=== PATIENT | female | born 1950 | race Caucasian/White ===

== ENCOUNTER 2020-09-03 16:49 | Emergency (ER) | payer MEDICARE, SELFPAY ==
[2020-09-03 16:55] VITALS: BP 149/60; PULSE 75; RESP 16; TEMP 36.3; O2SAT 100; BMI 32.9
[2020-09-03 17:01] VITALS: BP 164/88; PULSE 88; O2SAT 99
--- NOTE | 2020-09-03 17:23 | ED.GENADULT ---
HPI - General Adult General Source: patient, EMS and RN notes reviewed Mode of arrival: ambulatory Limitations: no limitations History of Present Illness HPI narrative: 70-year-old female here today for evaluation. Patient was brought by EMS, history of anaphylaxis to bee stings. Patient reports that she was outside just coming into the house and closing her umbrella when she noticed that hornet was on her pinky finger of her right hand. Patient felt a sting. She was afraid that she will have anaphylactic reaction is she is to bees. She never was stung by hornet before. She called the EMS. Patient reports that her whole finger swelled up and got red and warm. Patient took her ring of before the swelling. Patient denies any SOB, scratchy throat, dysphagia. Related Data Allergies Allergy/AdvReac Type Severity Reaction Status Date / Time bee pollen [Bee Stings] Allergy Unknown ANAPHLACTIC Unverified 01/23/20 17:30 Sulfa (Sulfonamide Allergy Unknown HIVES Unverified 01/23/20 17:30 Antibiotics) From Keflex Allergy Unknown RASH Uncoded 01/23/20 17:30 Review of Systems Review of Systems: Constitutional : No Weight loss, No Fever, No Chills, No Night Sweats, No Fatigue, No Malaise ENT/Mouth : No Hearing loss, No Ear Pain, No Nasal Congestion, No Sinus Pain, No Hoarseness, No sore throat, No Rhinorrhea, No Swallowing Difficulty Eyes: No Eye Pain, No Swelling, No Redness, No Foreign Body, No Discharge, No Vision Changes Cardiovascular : No Chest Pain, No SOB, No Dyspnea on Exertion, No Orthopnea, No Edema, No Palpitations Respiratory : No Cough, No Sputum, No Wheezing, No Smoke Exposure, No Dyspnea Gastrointestinal : No Nausea, No Vomiting, No Diarrhea, No Constipation, No abdominal Pain, No Hematochezia, No Melena Genitourinary : no irregular bleeding, No Dysuria, No Urinary Frequency, No Hematuria, No Urinary Incontinence, No Urgency, No Flank Pain, No Urinary Flow Changes, No Hesitancy Musculoskeletal : No joint pain, No Myalgias, No Joint Swelling Skin : No Skin Lesions, Right hand pinky red and swollen Neuro : No Weakness, No Numbness, No Paresthesias, No Loss of Consciousness, No Dizziness, No Headache Psych : No Anxiety/Panic, No Depression, No SI/HI/AH/VH, No Social Issues, Heme/Lymph: No Bruising, No Bleeding,No Lymphadenopathy Endocrine : No Polyuria, No Polydipsia, No Temperature Intolerance Yes all other systems are reviewed and are negative [facility] Past Medical History Medical History (Updated 09/07/20 @ 12:42 by Ameena Kwok [facility]) High cholesterol Palpitations Surgical History (Updated 09/03/20 @ 16:58 by Josselin Ferrara) History of left hip replacement Total knee replacement status Social History Social History Advance Directives: No Advance Directives Information Provided: No Physical Exam Vital Signs: Vital Signs: Last Vital Signs Temp 97.4 F 09/03/20 16:55 Pulse 75 09/03/20 16:55 Resp 16 09/03/20 16:55 BP 149/60 H 09/03/20 16:55 Pulse Ox 100 09/03/20 16:55 Body Mass Index 32.9 Const: General: cooperative, healthy appearing and comfortable Nutritional Appearance: average body habitus Orientation/consciousness: patient oriented x3 Limitations: no limitations Resp: Effort & Inspection: normal respiratory effort Auscultation: clear to auscultation bilaterally Cardio: Rate: regular rate Rhythm: regular rhythm Heart sounds: S1 normal heart sound present and S2 normal heart sound present Neuro: General: patient oriented x3 Extrem: General: Yes normal to inspection, Yes full ROM and Yes capillary refill normal Psych: Appearance: grossly normal Mental Status: mental status grossly normal Speech and movement: Normal speech and movement present Affect: normal affect Attitude: cooperative Thought process: Normal thought process present Insight: Good insight present (Psych) Course Course Course Narrative: 70-year-old female stung by hornet. Patient has allergy to bee pollen and bee stings. She reports she had a anaphylactic shock before when she was stung bees. Patient's right hand pinky finger red, swollen and warm to touch with local allergic reaction. Denies any dysphagia, itchy throat or SOB. Will order Benadryl p.o. and monitor patient for couple hours. Reevaluation(s) Reevaluation #1: Redness is resolving. Patient is feeling well able to swallow p.o. fluids no SOB continues to feel well. Discharge Plan Discharge Clinical Impression: Allergic reaction Patient Disposition: Home, Self-Care Instructions: General Allergic Reaction (ED) Additional Instructions: You came to emergency department today for allergic reaction to wasp/hornet sting. You were given Benadryl 25 mg by mouth. Please make sure that you have EpiPen on hand. Please return to emergency department if you symptoms worsen or if you will experience any other concerning symptoms. Please follow-up with your primary care provider in 2-3 days for more prescription for EpiPen. Interventions: ED Discharge Assessment Last Done: 09/03/20 18:43 Discharge Date/Time: 09/03/20 18:44
[2020-09-03] MEDS: diphenhydrAMINE HCL 25 MG TABLET PO (17:36)
== END 2020-09-03 18:44 | disposition home or self-care (01) ==
PROVIDERS: Emergency Provider Internal Medicine; PCP Internal Medicine
DX: T63.441A Toxic effect of venom of bees, accidental (unintentional), initial encounter (principal); M79.89 Other specified soft tissue disorders; Y92.017 Garden or yard in single-family (private) house as the place of occurrence of the external cause; X58.XXXA Exposure to other specified factors, initial encounter; Z91.030 Bee allergy status
CPT/HCPCS: 99283; Q0163

== ENCOUNTER 2025-04-21 14:40 | Emergency (ER) | payer MEDICARE, SELFPAY ==
--- OUTSIDE RECORDS SUMMARY | 2024-02-05 08:15 | XMS_ITS | Encounter Summary ---
Author Organization [facility] [place] [address] Care Team Providers Care Accountant Controller Name Role Phone Jules Lloyd MD Primary Care Provider [phone] Encounter Details Date Type Department Care Team (Late st Contact Info) Description 02/05/2024 9:15 AM EDT Hospital Encounter TH HISTORIC ENCOUNTERS EASTERN CONVERSION ONLY Vivi Mcintyre MD [address] [place] [address] Social History Tobacco Use Types Packs/Day Years Used Date Smoking Tobacco: Every Day Cigarettes 0.5 55 Started: 05/08/1971 Smokeless Tobacco: Never Alcohol Use Standard Drinks/Week Comments Not Currently 0 (1 standard drink = 0.6 oz pur e alcohol) Housing Instability Answer Date Recorde d Are you worried that in the next 2 months you may not have stable housing? No 01/29/2025 Food Access & Nutrition Answer Date Rec orded Do you have access to a vari ety of food including fruits and vegetables? Yes 01/29/2025 Access to Healthcare Answer Date Record ed Within the last 3 months, ca puri many times did you visit the emergency department for your medical care? 0 01/29/2025 Health Literacy Answer Date Recorded How often do you need to hav e someone help you when you read instructions, pamphlets, or other written material from your doctor or pharmacy? Never 01/29/2025 Caregiver: How often do you need to have someone help you when you read instructions, pamphlets, or other written material from your doctor or pharmacy? Not on file 01/29/2025 Transportation Answer Date Recorded Has the lack of transportati on kept you from meetings, work, or from getting things needed for daily living? No Has the lack of transportati on kept you from medical appointments or from getting medications? No 01/29/2025 Social Isolation Answer Date Recorded How often do you feel lonely or isolated from th ose around you? Never 01/29/2025 Food Risk Answer Date Recorded Within the past 12 months we worried whether our food would run out before we got money to buy more. Never true 01/29/2025 Within the past 12 months th e food we bought just didn't last and we didn't have money to get more. Never true 01/29/2025 Dependent Care Answer Date Recorded Do you need help finding or paying for care for your loved ones. For example, child adolescent psychiatrist or elderly care for an older adult? No 01/29/2025 Education Answer Date Recorded Do you think completing more education or training, like finishing a GED, going to college, or learning a trade, would be helpful for you? N/A 01/29/2025 Employment and Income Answer Date Recor ded During the last four weeks, have you been actively looking for work? Patient declined 01/29/2025 Living Situation Answer Date Recorded What is your living situation? Unrecognized valu e 01/29/2025 Interpersonal Safety Answer Date Record ed Physical Abuse Unrecognized value 04/23/2024 Verbal Abuse Unrecognized value 04/23/2024 Comments No Sex and Gender Information Value Date Recorded Sex Assigned at Female 04/23/2024 7:04 AM EST Legal Sex Female 6:00 AM EST Gender Identity Female 04/23/2024 7:04 AM EST Sexual Orientation Straight 04/23/2024 7: 04 AM EST documented as of this encounter Functional Status * Calculated C-SSRS Risk Score (Lifetime/Recent) Answer Date of Assessment Author No Risk Indicated 04/23/2024 9:25 PM EST Anastasiya Dudley RN * [place] Suicide Severity Rating Scale (Screener/Recent Self-Report) Question Answer Date of Assessment Author 1. Wish to be (Past 1 Month) No 04/23/2024 9:25 PM Anastasiya Dillard, SHIV 2. Non-Specific Active Suicidal Thoughts (Past 1 Month) No 04/23/2024 9:25 PM Anastasiya Dillard RN 6. Suicidal Behavior (Lifetime) No 04/23/2024 9:25 PM Anastasiya Dillard, SHIV documented as of this encounter Plan of Treatment Upcoming Encounters Date Type Department Care Team (Late st Contact Info) Description 05/12/2025 9:15 AM EST Office Visit [facility] Hematology Oncology [address] [place] [phone] Vivi Mcintyre MD [address] [place] [phone] 05/12/2025 9:30 AM EST Appointment [facility] Infusion Center [address] [place] [phone] 07/23/2025 10:00 AM EDT Office Visit Breast Care [address] [phone] Jigar Smart MD [address] [place] [phone] 08/06/2025 11:15 AM EDT Office Visit Adult Medicine [address] [phone] Jules Lloyd MD [address] [place] [phone] documented as of this encounter Visit Diagnoses Not on filedocumented in this encounter Care Teams Accountant Controller Relationship Specialty Start Date End Date Jules Lloyd MD [address] [place] [address] PCP - General Internal Medicine 05/22/17 documented as of this encounter
--- OUTSIDE RECORDS SUMMARY | 2024-02-08 07:54 | XMS_ITS | Encounter Summary ---
Author Organization [facility] [place] [address] Care Team Providers Care Quarantine Inspector Name Role Phone Jules Lloyd MD Primary Care Provider [phone] Encounter Details Date Type Department Care Team (Late st Contact Info) Description 02/08/2024 8:54 AM EDT Hospital Encounter TH HISTORIC ENCOUNTERS EASTERN CONVERSION ONLY Social History Tobacco Use Types Packs/Day Years [...] Record ed Within the last 3 months, ho w many times did you visit the emergency [...] care for your loved ones. For example, early childhood associate teacher or elderly care for an older adult? [...] AM EST documented as of this encounter Last Filed Vital Signs Vital Sign Reading Time Taken Comments Blood Pressure - - Pulse - - Temperature - - Respiratory Rate - - Oxygen Saturation - - Inhaled Oxygen Concentration - - Weight 77.8 kg (171 lb 9.6 oz) 02/05/2024 10:08 AM EDT Height 162.6 cm (5' 4 ) 01/30/2024 9:26 AM EDT Body Mass Index 29.45 01/30/2024 9:26 AM EDT documented in this encounter Functional Status * Calculated C-SSRS Risk Score (Lifetime/Recent) Answer Date of Assessment Author No Risk Indicated 04/23/2024 9:25 PM Anastasiya Dillard RN * [place] Suicide Severity Rating Scale (Screener/Recent Self-Report) Question Answer Date of Assessment Author 1. Wish to be (Past 1 Month) No 04/23/2024 9:25 PM Anastasiya Dillard, SHIV 2. Non-Specific Active Suicidal Thoughts (Past 1 Month) No 04/23/2024 9:25 PM Anastasiya Dillard RN 6. Suicidal Behavior (Lifetime) No 04/23/2024 9:25 PM Anastasiya Dillard RN documented as of this encounter Progress Notes * Historical, Notes Results - 02/08/2024 9:00 AM EDT Arrived amb with daughter for hydration. Pt has thrush, it is improving, still slight yellow coating on tongue. She is taking diflucan, taste is off, appetite poor, eating small amounts at a time. Diarrhea improving, no BM today, stool was loose yesterday, not as watery. No nausea or vomiting, justupset stomach. Feels she would benefit from a banana bag today, halo sent to Dr. Mcintyre re orders for today. Spoke with Dr. Mcintyre on phone, verbal order for banana bag today from Dr. Mcintyre. Port accessed. 1220 Infusion complete, next step for her is surgery, pt scheduled for port flush after [facility] [place] in 8 weeks. Knows she can call in the meantime if she feels she needs hydration support. Left amb with daughter stable at D/C. documented in this encounter Plan of Treatment Upcoming Encounters Date Type Department Care Team (Late st Contact Info) Description 05/12/2025 9:15 AM EST Office Visit [facility] Hematology Oncology [address] [place] [phone] Vivi Mcintyre MD [address] [place] [address] 05/12/2025 9:30 AM EST Appointment [facility] [address] [facility] [address] [place] [phone] 07/23/2025 10:00 AM EDT Office Visit [facility] [address] [place] [phone] Jigar Smart MD [address] [place] [phone] 08/06/2025 11:15 AM EDT Office Visit Adult Medicine [facility] [address] [place] [phone] Jules Lloyd MD [address] [place] [address] documented as of this encounter Visit Diagnoses Not on filedocumented in this encounter Care Teams Quarantine Inspector Relationship Specialty Start Date End Date Jules Lloyd MD [address] [place] [phone] PCP - General Internal Medicine 05/22/17 documented as of this encounter
--- NOTE | ~2025-04-21 | CT_ITS ---
CLINICAL HISTORY: tender epigastric and LUQ CT abdomen and pelvis with contrast Comparison: None provided Findings: Hiatal hernia. Left renal upper pole cortical low-attenuation lesion, 6.7 cm, lower pole 2.4 cm, right renal upper pole 1.2 cm; renal cysts. Cholelithiasis. The liver and spleen, right adrenal and pancreas are within normal limits. Left adrenal lesion, 3 x 3.7 cm. Hepatomegaly, 19 cm. No bowel obstruction, pneumoperitoneum, or pneumatosis. Diverticulosis. The appendix is not grossly identified. Prior left hip arthroplasty. [id number] osteopenia. IMPRESSION: 1. 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 Laboratory clinical correlation suggested. 2. Left renal upper pole cortical low-attenuation lesion, 6.7 cm; renal cysts. 3. Hepatomegaly, 19 cm. 4. Cholelithiasis. 5. Hiatal hernia. This document has been electronically signed by: Elías Villanueva MD on 04/21/2025 22:08:57
--- NOTE | ~2025-04-21 | XR_ITS ---
CLINICAL HISTORY: port placement 2 view chest x-ray Comparison: None provided Findings: No consolidation or effusion. Heart size is normal. Right subclavian MediPort with tip projected over the proximal superior vena cava. Mild osteopenia. Prior cervical anterior cervical discectomy and fusion. 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 Left axillary surgical emily present. IMPRESSION: 1. Right subclavian MediPort with tip projected over the proximal superior vena cava. 2. 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 3. Prior cervical anterior cervical discectomy and fusion. 4. Left axillary surgical emily present. 5. Mild osteopenia. 6. No acute cardiopulmonary findings. This document has been electronically signed by: Elías Villanueva MD on 04/21/2025 18:14:22
--- NOTE | 2025-04-21 15:00 | ED_ITS ---
HPI - General Adult General Chief complaint: Abdominal Pain Stated complaint: stomach pain Time Seen by Provider: 04/21/25 19:51 Source: patient, RN notes reviewed and old records reviewed Mode of arrival: ambulatory Limitations: no limitations History of Present Illness ED Provider: Adele Virk PA-C HPI narrative: Angie is a 75-year-old female who presents to the ED for evaluation of persistent gastrointestinal symptoms. She reports the sudden onset of uncontrollable vomiting and diarrhea beginning last Monday night. Symptoms improved by Monday and she felt ?not bad? by the end of the week, but yesterday she experienced recurrence of stomach pain radiating to her back along with severe nausea. She is forcing fluids but remains unable to tolerate solid food and feels very dehydrated. Denies dysuria or other urinary symptoms, fevers, or respiratory complaints. Past abdominal surgeries are denied. Relevant oncologic history includes bilateral mastectomy last April for breast cancer, completion of chemotherapy last January, and 5 weeks of radiation ending 08/06. A Medi-port remains in place without issues. Additional history includes hypercholesterolemia, palpitations, total knee replacement, left hip replacement, prior anterior cervical discectomy, left axillary surgical emily, and mild osteopenia. Review of Systems: * Gastrointestinal: Positive for nausea, vomiting, diarrhea (initial episode last week), abdominal pain radiating to back; unable to tolerate solids. * Constitutional: Reports late fatigue; denies fever. * Genitourinary: Denies dysuria or urinary frequency. * Respiratory: Denies cough, SOB, or other respiratory symptoms. She is established at [facility] with Dr. Mcintyre. Follow up in a few weeks is already scheduled. Related Data Previous Rx's ?Medication ?Instructions ?Recorded ondansetron 4 mg disintegrating 4 mg PO Q8H PRN nausea and 04/21/25 tablet vomiting #10 tabs Allergies Allergy/AdvReac Type Severity Reaction Status Date / Time bee pollen (Bee Stings) Allergy Unknown ANAPHLACTIC Unverified 04/21/25 15:03 Sulfa (Sulfonamide Allergy Unknown HIVES Unverified 04/21/25 15:03 Antibiotics) From Keflex Allergy Unknown RASH Uncoded 04/21/25 15:03 Review of Systems 2 Review of Systems: Yes all other systems are reviewed and are negative PMFSH Past Medical History Attestation statement: The following information was validated with the patient. Source: old records reviewed and nursing notes reviewed Medical History High cholesterol Palpitations Surgical History Total knee replacement status History of left hip replacement Social History Social History Advance Directives: Yes Advance Directives Information Provided: Yes Advance Directives on File: No Physical Exam ED Exam Exam: General: Appears in no acute distress, appears well nourished body habitus is overweight, appears stated age. No septic or ill-appearing. Vitals reviewed normal, PMH/Social and Surgical hx reviewed including allergies and current medications. - reviewed for prior visits here Head: Normocephalic, no obvious trauma or skin lesions noted. Eyes: EOMI ENMT: dry oral mucosa Neck: trachea midline Cardiovascular: peripheral perfusion normal, Regular heart rate Respiratory: no respiratory distress Abdomen: nondistended, Tenderness noted in epigastric and RUQ, periumbilical region on palpation. No surgical scars over abdomen; port site clean and non-tender. No guarding or peritoneal signs. - Cardio/Pulmonary: Normal S1/S2; lungs clear to auscultation bilaterally. Extremities: warm and moving without difficulty Psych: Cooperative Neuro: Alert and oriented. Vital Signs: Vital Signs - 24 hr 04/21/25 15:01 04/21/25 20:44 Temperature 97.4 F 98.2 F Pulse Rate 58 56 Respiratory Rate 18 16 Blood Pressure 164/77 H 140/56 H Pulse Oximetry 98 99 Oxygen Delivery Method Room Air Room Air BMI result Body Mass Index 26.4 Course Course Course Narrative: Rapid medical examination performed in triage by Angelina Ardon PA-C: Patient is a 75 year old female presenting to the emergency department with abdominal pain. Detailed physical exam and review of systems are deferred to the tool coordinator. EKG, labs, swabs ordered. Patient placed back in the waiting room pending room availability and results. Medications Administered Discontinued Medications Generic Name Dose Route Start Last Admin Trade Name Freq PRN Reason Stop Dose Admin Sodium Chloride 1,000 mls @ 999 mls/hr 04/21/25 22:30 04/22/25 00:40 Ns IV 04/21/25 23:30 Infused .Q1H1M ROBBY Infusion Iohexol 85 ml 04/21/25 21:26 04/21/25 21:29 Iohexol 350 Mg/Ml 100 Ml Infus..Btl IV 04/21/25 21:27 85 ml ONCE ONE Administration Ondansetron HCl 4 mg 04/21/25 22:22 04/21/25 22:26 Ondansetron Hcl 4 Mg/2 Ml Vial IVPUSH 04/21/25 22:23 4 mg ONCE ONE Administration Medical Decision Making Medical Decision Making MDM Narrative: 75-year-old female with a history of breast cancer (bilateral mastectomy, recent chemotherapy and radiation), cholelithiasis, hiatal hernia, adrenal adenoma, renal cyst, and multiple orthopedic surgeries, presenting with acute onset nausea, vomiting, diarrhea, and abdominal pain radiating to the back. She is unable to tolerate solids and reports significant dehydration. No history of abdominal surgeries. No fever, dysuria, or respiratory symptoms. Differential Diagnosis: The differential diagnosis for this presentation includes: * Infectious gastroenteritis (viral or bacterial) * Malignancy-related gastrointestinal symptoms (possible metastatic disease) * Cholelithiasis with possible biliary colic * Hiatal hernia with reflux or obstruction * Dehydration secondary to GI losses * Other causes: new kidney lesion concerning for metastasis Diagnostic Workup: Comprehensive evaluation included laboratory studies (CBC, BMP, LFTs, urinalysis), imaging (chest X-ray, CT abdomen/pelvis), and EKG. Douglas findings: * No leukocytosis; borderline normocytic anemia * No electrolyte imbalance; normal renal and hepatic function * Urinalysis: proteinuria, trace blood, no bacteria * Chest X-ray: Medi-port in place, no acute findings * EKG: Normal sinus rhythm, no acute changes * CT abdomen/pelvis: 3 cm probable left adrenal adenoma, 6.7 cm left renal cyst, hepatomegaly, cholelithiasis, hiatal hernia * No evidence of acute infection or organ dysfunction Rationale for Management Decisions: Management focused on supportive care and outpatient follow-up: * IV fluids administered for dehydration * Antiemetic therapy (ondansetron IV and oral prescription) * Pain control as needed * Discharge planning with clear instructions for return precautions * Oncology follow-up recommended for evaluation of new liver lesion and review of CT findings * No acute surgical or oncologic intervention indicated at this time Assessment of Risk and Complexity: This case is of moderate complexity due to multiple comorbidities (recent cancer treatment, cholelithiasis, hiatal hernia, adrenal adenoma, renal cyst), new liver lesion concerning for possible metastasis, and the need for specialist (oncology) follow-up. Diagnostic uncertainty remains regarding the etiology of GI symptoms and adrenal lesion, requiring coordination of care and close outpatient monitoring. No evidence of acute organ dysfunction or infection at present. 75-year-old female with recent onset of severe nausea, vomiting, diarrhea, and abdominal pain. Imaging notable for hepatomegaly, cholelithiasis, hiatal hernia, and adrenal lesion in the setting of history of breast cancer. No lab evidence of infection or organ dysfunction. Problem #1: Nausea, Vomiting, Dehydration Assessment: Acute symptomatic episode with inability to tolerate solids; likely multifactorial (hiatal hernia vs malignancy-related). No evidence of infection; labs unremarkable. Plan: * Administer IV fluids in ED (ongoing). * Provide ondansetron (Zofran) IV now and prescribe oral ondansetron on discharge. * Encourage clear liquids and advance diet as tolerated (pudding/Jell-O suggested). * Return precautions: worsening abdominal pain, inability to keep fluids down, fever, or new symptoms. * Passed PO challange Problem #2: Abdominal Pain / Cholelithiasis & Hiatal Hernia Assessment: RUQ tenderness with cholelithiasis and known hiatal hernia on CT; pain radiates to back. Plan: * Pain control as needed while in ED. Problem #3: History of Breast Cancer with New kidney Lesion Assessment: adrenal lesion on CT concerning for possible metastatic disease in a patient with prior breast cancer (bilateral mastectomy, completed chemo and radiation). Plan: * Recommend patient call oncologist (Dr. Mcintyre [facility]) tomorrow to review CT findings. * Share ED records and imaging with oncology. * Anticipate need for PET scan per oncology to further evaluate lesion. * No acute oncologic intervention in ED today. Discharge Instructions: ? Continue oral hydration; attempt soft/bland foods as tolerated. ? Take ondansetron as prescribed for nausea. ? Follow up with oncology tomorrow; contact PCP for incidental findings. ? Return to ED for worsening symptoms or concern. Work note provided per patient request. Differential Diagnosis Differential Diagnoses: The differential diagnosis associated with the presentation includes see MDM Admission/Observation Consideration of admission/observation: Escalation of care including admission/observation considered Patient would have been admitted to the hospital had [his/her/their] work up had any findings where hospital admission was appropriate and [his/her/their] clinical presentation warranted hospital admission. Lab Data MDM Lab Attestation statement: I reviewed the patient's lab results. 04/21/25 20:37 04/21/25 20:37 Labs: Lab Results 04/21/25 04/21/25 Range/Units 15:32 20:37 WBC 7.0 (4.8-10.8) X10*3/uL RBC 3.96 L (4.20-5.50) X10*6/uL Hgb 12.8 (12.0-16.0) g/dl Hct 36.4 L (37.0-47.0) % MCV 91.9 (80.0-98.0) fL MCH 32.3 (27.0-33.0) pg MCHC 35.2 H (31.0-35.0) g/dl RDW 11.7 (11.0-16.0) % Plt Count 151 L (160-400) X10*3/uL MPV 8.9 L (9.4-12.3) fL Immature Gran % (Auto) 0.1 (0.0-0.4) % Neut % (Auto) 82.2 H (45-73) % Lymph % (Auto) 10.8 L (20-40) % [place] % (Auto) 6.3 (2-11) % Eos % (Auto) 0.3 (0-4) % Baso % (Auto) 0.3 (0-2) % Lymph # (Auto) 0.8 L (1.2-4.9) X10*3/uL [place] # (Auto) 0.4 (0.1-1.2) X10*3/uL Eos # (Auto) 0.0 (0.0-0.4) X10*3/uL Baso # (Auto) 0.0 (0.0-0.2) X10*3/uL Abs Immat Gran (auto) 0.01 (0.00-0.03) X10*3/uL Absolute Neuts (auto) 5.7 (2.0-8.3) x10*3/uL Absolute Nucleated RBC 0.000 (0.0-0.012) X10*3/uL Nucleated RBC % (auto) 0.0 (0.0-0.2) /100WBC PT 13.3 (11.2-13.5) SEC INR 1.1 (0.9-1.1) Sodium 136 (135-145) mmol/L Potassium 4.3 (3.3-5.1) mmol/L Chloride 103 (96-108) mmol/L Carbon Dioxide 27 (22-29) mmol/L Anion Gap 10 L (12-20) BUN 13 (9-16) mg/dL Creatinine 0.62 (0.5-1.4) mg/dL Estim Creat Clear Calc 72.8 Estimated GFR > 60 Random Glucose 115 (60-115) mg/dL Calcium 9.4 (8.4-10.2) mg/dL Magnesium 2.0 (1.6-2.6) mg/dL Total Bilirubin 0.8 (0.0-1.0) mg/dL AST 23 (5-31) U/L ALT 27 (0-31) U/L Alkaline Phosphatase 76 (39-117) U/L Troponin I High Sens 10.8 (<3.5-17.0) ng/L Total Protein 7.0 (6.5-8.0) g/dL Albumin 4.3 (3.5-5.0) g/dL Lipase 20 (8-78) U/L Urine Color Yellow Urine Appearance Cloudy Urine pH 7.5 (5.0-9.0) Ur Specific [place] 1.015 (1.005-1.025) Urine Protein 30 (1+) H (Neg-Trace) mg/dL Urine Glucose (UA) Negative (Negative) mg/dL Urine Ketones Trace (Negative) mg/dL Urine Blood Trace H (Negative) Urine Nitrite Negative (Negative) Ur Leukocyte Esterase Negative (Negative) Urine RBC >20 H (0-2) /HPF Urine WBC 0-5 (0-5) /HPF Ur Squamous Epith Cells 0-2 (0-2) /HPF Urine Bacteria None Seen (None Seen) Hyaline Casts 0-2 (0-2) /LPF Influenza Type A (PCR) NEGATIVE (Negative) Influenza Type B (PCR) NEGATIVE (Negative) RSV RNA Qual (PCR) NEGATIVE (Negative) SARS-CoV-2 RNA (RT-PCR) NEGATIVE (Negative) Independent Interpretation I performed an independent interpretation of an: EKG, Plain X-Ray and CT Scan Interpretation: EK bpm, no sichemia or malignant arrhythmia noted, CXR no acute findings: CT without perf, sbo or diverticulitis Radiology Impression Discussion of test interpretation with radiology: I have reviewed the radiologist's reading. Radiologist Impression: CT scan: IMPRESSION: 1. 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 Laboratory clinical correlation suggested. 2. Left renal upper pole cortical low-attenuation lesion, 6.7 cm; renal cysts. 3. Hepatomegaly, 19 cm. 4. Cholelithiasis. 5. Hiatal hernia. XRAY: IMPRESSION: 1. Right subclavian MediPort with tip projected over the proximal superior vena cava. 2. 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 3. Prior cervical anterior cervical discectomy and fusion. 4. Left axillary surgical emily present. 5. Mild osteopenia. 6. No acute cardiopulmonary findings. Tests considered The following testing was considered but not selected: PET SCAN< not applicable in ER setting Prescription Management I considered prescription management with: Other Chronic Conditions Patient?s care impacted by: Cancer Social Determinants Patient?s care significantly limited by Social Determinants of Health including: Other Social Determinant of Health Discharge Plan Discharge Clinical Impression: Abdominal pain, Nausea, Lesion of adrenal gland Patient Disposition: Home, Self-Care Additional Instructions: CHIEF COMPLAINT Persistent nausea, vomiting, diarrhea, and abdominal pain radiating to the back. --- HISTORY OF PRESENT ILLNESS Angie is a 75-year-old female who presented to the emergency department with a one-week history of gastrointestinal symptoms. She reported sudden onset of uncontrollable vomiting and diarrhea beginning approximately one week prior to presentation. Symptoms initially improved by midweek but recurred yesterday with severe nausea and epigastric/periumbilical pain radiating to her back. She has been unable to tolerate solid foods and reports feeling markedly dehydrated despite forcing oral fluids. She denies fever, dysuria, urinary frequency, respiratory symptoms, or prior abdominal surgeries. --- PAST MEDICAL HISTORY - Bilateral breast cancer (bilateral mastectomy April 2024, chemotherapy completed January 2024, radiation therapy completed August 2024) - Cholelithiasis - Hiatal hernia - Left adrenal adenoma (incidental finding) - Left renal cortical cyst (incidental finding) - Hypercholesterolemia - Palpitations - Mild osteopenia - Total knee replacement - Left hip replacement - Prior anterior cervical discectomy - Medi-port in place (functioning without complications) --- EMERGENCY DEPARTMENT COURSE Vital Signs on Presentation: - Blood Pressure: 164/77 mmHg - Heart Rate: 58 bpm - Respiratory Rate: 18 breaths/min - Temperature: 97.4?F (oral) - Oxygen Saturation: 98% on room air Physical Examination: General: Patient appeared uncomfortable with nausea. Abdomen: Tenderness in epigastric, right upper quadrant, and periumbilical regions on palpation. No guarding, rebound tenderness, or peritoneal signs. No surgical scars. Medi-port site clean and non-tender. Cardiovascular: Regular rate and rhythm, normal S1/S2. Pulmonary: Clear to auscultation bilaterally. Laboratory Results: - Complete Blood Count: No leukocytosis; borderline normocytic anemia - Basic Metabolic Panel: Normal electrolytes; normal renal function (creatinine and BUN within normal limits) - Liver Function Tests: AST, ALT, alkaline phosphatase, and total bilirubin within normal limits - Urinalysis: 30+ protein, trace blood; no bacteria, nitrites, or leukocyte esterase Infectious Disease Workup: - Influenza A/B: Negative - RSV: Negative - COVID-19: Negative Imaging Studies: Chest X-ray: Right subclavian Medi-port appropriately positioned. 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 No acute cardiopulmonary findings. Electrocardiogram: Normal sinus rhythm at [address]-T wave changes compared to prior study (January 2010). CT Abdomen/Pelvis with IV Contrast: - Liver: Hepatomegaly (liver measures 19 cm in craniocaudal dimension). New liver lesion identified, concerning for possible metastatic disease. - Adrenal Glands: 3 x 3.7 cm probable left adrenal adenoma (stable compared to prior imaging) - Kidneys: 6.7 cm left renal upper pole cortical cyst (low attenuation, consistent with simple cyst) - Gallbladder: Cholelithiasis without evidence of acute cholecystitis - Stomach: Hiatal hernia - No bowel obstruction, free air, or acute inflammatory process identified --- EMERGENCY DEPARTMENT MANAGEMENT Supportive Care: - Intravenous normal saline administered for dehydration - Ondansetron 4 mg IV administered for nausea and vomiting - Pain management provided as needed - Patient tolerated oral intake of clear liquids prior to discharge Medications Prescribed at Discharge: - Ondansetron 4 mg orally every 6-8 hours as needed for nausea (dispense 10 tablets) --- ASSESSMENT AND DIAGNOSES 1. Acute gastroenteritis with dehydration ? Likely viral etiology given negative infectious workup and clinical presentation. Symptoms significantly improved with IV hydration and antiemetic therapy. 2. Abdominal pain ? likely multifactorial ? Contributing factors include known cholelithiasis, hiatal hernia, and possible malignancy-related symptoms. No evidence of acute cholecystitis or biliary obstruction on imaging. 3. History of breast cancer with new liver lesion ? CT abdomen/pelvis demonstrates hepatomegaly (19 cm) and new liver lesion concerning for possible metastatic disease in the setting of recent breast cancer treatment (bilateral mastectomy, chemotherapy, and radiation completed [id number]). 4. Incidental findings on CT: - Left adrenal adenoma (3 x 3.7 cm) ? Probable benign adenoma. Per current guidelines, benign-appearing nonfunctioning adrenal masses 4 cm do not require routine imaging follow-up - Left renal cortical cyst (6.7 cm) ? Large simple renal cyst. Simple renal cysts are benign and do not require routine follow-up imaging in the absence of symptoms or concerning features --- RISK ASSESSMENT AND COMPLEXITY This case presents moderate complexity due to multiple comorbidities including recent cancer treatment with chemotherapy and radiation, cholelithiasis, hiatal hernia, incidental adrenal and renal findings, and new hepatomegaly with liver lesion concerning for possible metastatic disease. The new liver lesion represents diagnostic uncertainty and requires urgent oncology evaluation and coordination of care. No evidence of acute organ dysfunction, infection, or surgical emergency was identified during this ED visit. --- DISCHARGE INSTRUCTIONS Activity: Resume normal activities as tolerated. Rest as needed. Diet: - Continue clear liquids (water, broth, electrolyte-containing beverages) for the next 24 hours - Advance to bland, soft foods (pudding, Jell-O, crackers, toast, bananas, rice) as tolerated over the next 24-48 hours - Avoid fatty, spicy, or heavy foods until symptoms fully resolve - Small, frequent meals recommended Medications: - Take ondansetron 4 mg orally every 6-8 hours as needed for nausea - Continue all home medications as previously prescribed Follow-Up Care: URGENT ? Oncology Follow-Up: - Contact your oncologist (Dr. Mcintyre at [facility]) TOMORROW (2025-04-23) to review CT findings, specifically the new liver lesion and hepatomegaly - Your ED records and imaging will be shared with your oncology team - You may require additional imaging studies such as PET scan or MRI for further evaluation of the liver lesion Primary Care Follow-Up: - Schedule appointment with your primary care physician within 1 week to review incidental CT findings (adrenal adenoma and renal cyst) - Consider referral to urology if renal cyst becomes symptomatic or demonstrates concerning features on future imaging RETURN PRECAUTIONS ? SEEK IMMEDIATE MEDICAL ATTENTION IF: - Worsening or severe abdominal pain that does not improve with rest or medication - Inability to keep down liquids or persistent vomiting despite ondansetron - Fever (temperature >=00.4?F or 38?C) - Blood in vomit or stool (red blood or coffee-ground appearance, black tarry stools) - Signs of dehydration: decreased urination, dark urine, dizziness, dry mouth, extreme fatigue - Jaundice (yellowing of skin or eyes) - Altered mental status, confusion, or severe weakness - Chest pain, shortness of breath, or difficulty breathing - Any new or concerning symptoms Patient Education: You were treated in the emergency department for nausea, vomiting, diarrhea, and abdominal pain. Your symptoms improved with IV fluids and anti-nausea medication. Your CT scan showed some important findings including a new lesion in your liver that needs to be evaluated by your oncologist as soon as possible given your history of breast cancer. The scan also showed findings consistent with your known conditions (gallstones and hiatal hernia) and some incidental findings (adrenal and kidney cysts) that can be discussed with your primary care doctor. Work Note: Work note provided per patient request. --- PATIENT CONDITION AT DISCHARGE Patient hemodynamically stable, tolerating oral fluids, nausea improved with treatment, pain controlled. Patient verbalized understanding of discharge instructions, return precautions, and importance of urgent oncology follow-up. Patient agrees with discharge plan. Discharge Disposition: Home Follow-Up Arranged: Patient instructed to contact oncology tomorrow and schedule primary care appointment within one week --- Prescriptions: New ondansetron 4 mg tablet,disintegrating 4 mg PO Q8H PRN (Reason: nausea and vomiting) Qty: 10 0RF Referrals: Vivi Mcintyre MD [Physician, Oncology] Referral Note: hx of breast cancer, concern for possible METS to adrenal gland Clinical Impression: Abdominal pain; Lesion of adrenal gland Interventions: ED Discharge Assessment Last Done: 04/22/25 00:46 Discharge Date/Time: 04/22/25 00:48 Print Language: Singaporean
[2025-04-21 15:01] VITALS: BP 164/77; PULSE 58; RESP 18; TEMP 36.3; O2SAT 98; BMI 26.4
--- NOTE | 2025-04-21 15:02 | ECG_ITS ---
Test Reason : abd pain Blood Pressure : */* mmHG Vent. Rate : 60 BPM Atrial Rate : 60 BPM P-R Int : 194 ms QRS Dur : 82 ms QT Int : 422 ms P-R-T Axes : 67 -2 42 degrees QTcB Int : 422 ms Normal sinus rhythm Normal ECG When compared with ECG of 12-Jan-2010 14:27, No significant changes seen Referred By: Angelina Ardon Electronically Signed By: Enrique Lucas
--- NOTE | 2025-04-21 15:57 | MHC.EDTECH ---
pt has a port that needs to acess!
[2025-04-21 16:21] LABS: Resp Syncy Virus RNA Qual PCR NEGATIVE (Negative); SARS COV2 PCR INHOUSE NEGATIVE (Negative)
[2025-04-21 20:43] LABS: Hematocrit 36.4 % (37.0-47.0); Hemoglobin 12.8 g/dl (12.0-16.0); Imm Gran Abs Auto 0.01 X10*3/uL (0.00-0.03); Imm Gran Pct Auto 0.1 % (0.0-0.4); Lymphocytes Absolute Auto 0.8 X10*3/uL (1.2-4.9); MANUAL DIFF FLAG NO; Mean Corpuscular HGB Conc 35.2 g/dl (31.0-35.0); Mean Corpuscular Hemoglobin 32.3 pg (27.0-33.0); Mean Corpuscular Volume 91.9 fL (80.0-98.0); NRBC Abs Auto 0.000 X10*3/uL (0.0-0.012); NRBC Pct Auto 0.0 /100WBC (0.0-0.2); Platelet Count 151 X10*3/uL (160-400); Red Blood Count 3.96 X10*6/uL (4.20-5.50); White Blood Count 7.0 X10*3/uL (4.8-10.8)
[2025-04-21 20:44] VITALS: BP 140/56; PULSE 56; RESP 16; TEMP 36.8; O2SAT 99
[2025-04-21 20:44] LABS: Appearance Urine Cloudy; Glucose Urine UA Negative (Negative); PH 7.5 (5.0-9.0); Specific Gravity - Urine 1.015 (1.005-1.025); UMIC TRIGGER UACC YES
[2025-04-21 20:48] LABS: INTERNATIONAL NORM RATIO 1.1 (0.9-1.1); Prothrombin Time 13.3 SEC (11.2-13.5)
[2025-04-21 20:58] LABS: Alanine Aminotransferase 27 U/L (0-31); Albumin Level 4.3 g/dL (3.5-5.0); Alkaline Phosphatase 76 U/L (39-117); Anion Gap 10 (12-20); Aspartate Amino Transferase 23 U/L (5-31); Blood Urea Nitrogen 13 mg/dL (9-16); Calcium 9.4 mg/dL (8.4-10.2); Carbon Dioxide 27 mmol/L (22-29); Chloride 103 mmol/L (96-108); Creatinine Clr Calc Pharmacy 72.8; Estimated Glomerular Filt Rate > 60; Magnesium 2.0 mg/dL (1.6-2.6); Potassium 4.3 mmol/L (3.3-5.1); Sodium 136 mmol/L (135-145); Total Protein 7.0 g/dL (6.5-8.0)
[2025-04-21 21:05] LABS: Troponin-I High Sensitivity 10.8 ng/L (<3.5-17.0)
[2025-04-21 21:18] LABS: Lipase 20 U/L (8-78)
--- NOTE | 2025-04-21 21:22 | PC.NURSE ---
20g IV access established to right AC. Patient has port to right chest, used in the past for chemo. Plan for CT with IV contrast. Patient is alert/oriented, calm/cooperative. Care ongoing by this RN.
[2025-04-21] MEDS: iohexoL 350 MG/ML 100 ML INFUS..BTL 85 ML IV (21:29)
--- OUTSIDE RECORDS SUMMARY | 2025-04-21 22:49 | XMS_ITS | Encounter Summary ---
Author Organization [facility] Address [address] [place] [address] Phone Care Team Providers Care Scrubber Machine Tender Name Role Phone Jules Lloyd MD Primary Care Provider [phone] Anastasiya Christianson MD Unavailable Esther Garrett MD Unavailable Encounter Details Date Type Department Care Team (Late st Contact Info) Description 09/25/2017 Procedure Pass [facility] [address] [place] [id number] Social History Tobacco Use Types Packs/Day Years Used Date Smoking Tobacco: Never Assessed Comments Unknown Sex and Gender Information Value Date Recorded Sex Assigned at Female 05/14/2024 12:05 PM EST Legal Sex Female 3:38 PM EDT Gender Identity Female 05/14/2024 12:05 PM EST Sexual Orientation Straight 05/14/2024 12 :05 PM EST documented as of this encounter Plan of Treatment Not on file documented as of this encounter Visit Diagnoses Not on filedocumented in this encounter Care Teams Scrubber Machine Tender Relationship Specialty Start Date End Date Jules Lloyd MD [address] [place] [address] PCP - General Internal Medicine 09/12/17 Anastasiya Christianson MD [address] [place] [phone] [email or web address] Referring Physician Radiation Oncology 05/14/24 Esther Garrett MD [address] [place] [address], [place] [address] [email or web address] [email or web address] Oncology 06/03/24 documented as of this encounter Additional Source Comments The information contained in this document represents components of the legal health record. It is not the complete legal health record.[facility]
--- OUTSIDE RECORDS SUMMARY | 2025-04-21 22:49 | XMS_ITS ---
Author Organization [facility] Address [address] [place] [address] Phone Care Team Providers Care Claims Analyst Name Role Phone Jules Lloyd MD Primary Care Provider [phone] Active Problems Problem Noted Date Diagnosed Date Meningioma 09/18/2024 Recurrent malignant neoplasm of left breast 11/05 Cancer Staging:Pathologic: ypT4b, pN0(i+), cM0, G2, ER+, TN+, HER2- - Signed by Anastasiya Christianson MD on 06/19/2024 Kidney cysts 08/19/2022 Obesity (BMI 30-39.9) 10/08/2021 HTN (hypertension) 07/19/2021 Assessment & Plan (01/30/2025 8:28 AM EDT): Well-controlled during today's exam with a reading of 130/78. Continue on current dose of Diltiazem. Educated on the importance of diet lifestyle to help further assist in reducing blood pressure. The patient was encouraged to follow low-salt low-fat diet, make purposeful strides towards weight loss, and engage in routine aerobic exercise as tolerated. Orders: ECG 12 lead Adenoma of left adrenal gland 07/02/2019 Lumbar stenosis 06/27/2019 Insomnia 05/04/2018 Anxiety and depression 12/25/2013 Morbid obesity 05/02/2013 Overview (02/09/2024): BMI 41.67 on 02/21/13. Tinnitus 11/16/2011 Overview (02/09/2024): 7 Carotid stenosis 09/12/2011 Overview (02/09/2024): 08/17; No significant stenosis Assessment & Plan (01/30/2025 8:28 AM EDT): We will update carotid studies to further evaluate any progression of carotid stenosis. Continue statin therapy. Patient denies any word finding, unilateral weakness or vision changes. Orders: Vascular US duplex carotid bilateral; Future Lipid panel with reflex to direct LDL; Future Syncope 08/22/2011 Dyslipidemia 09/22/2009 Assessment & Plan (01/30/2025 8:28 AM EDT): At this time she will continue on her current dose of pravastatin 20 mg be mindful of dietary fat intake. Will update fasting lipid panel to further evaluate current cholesterol levels. Historically LDL has been less than 70 in the past on this current dose of statin therapy. Orders: Lipid panel with reflex to direct LDL; Future MR (mitral regurgitation) 09/22/2009 Degenerative arthritis of cervical spine 010 Radiculitis, cervical 08/06/2009 Smoking 11/20/2007 Cervicalgia 02/07/2007 Overview (02/09/2024): Memo; ALLIP C3-4 Mitral valve disorder 10/17/2005 Overview (02/09/2024): Mild-moderate regurgitation 2008 IMO update Current Treatment and Therapy Plans CENTRAL VENOUS ACCESS ( CVA ) MAINTENANCE / BLOOD DRAW / CATHETER CLEARANCE / DRESSING CHANGE / FLUSH* Plan Start Date:07/22/2024 Plan Provider:Vivi Mcintyre MD Linked Problems Recurrent malignant neoplasm of left breast (CMS/HCC V24, CMS/HCC V28) Treatment Medications No medications scheduled. Past Treatment and Therapy Plans No past plan information found. Current Radiation Episodes * Radiation Therapy: Chest wallOverview* First Treatment Date Latest Treatment Date Treatment Site Technique Goal Episode Provider 06/27/2024 08/07/2024 Chest wall Curative Anastasiya Christianson MD * Linked Problems Treatment Courses* Course 2 06/27/2024 - 08/07/2024 Treatment Sites Treatment Period Fraction Dose Fractions Total Dose Left Chestwall boost 08/05/2024 - 08/07/2024 200 / 200 cGy 600 / 600 cGy Lt Chestwall NoBolus 07/18/2024 - 08/02/2024 200 / 200 cGy 1 2,400 / 2,400 cGy Left Chestwall Bolus 06/27/2024 - 07/17/2024 200 / 200 cGy 1 2,600 / 2,600 cGy Left Sclav DIBH 06/27/2024 - 08/02/2024 200 / 200 cGy 5 5,000 / 5,000 cGy Resolved Problems Problem Noted Date Diagnosed Date Resolved Date Malignant neoplasm of unspec ified site of left female breast 03/25/2024 06/19/2024 Breast cancer 10/15/2009 06/19/2024 Overview (02/09/2024): 10/15; Daisy Cuellar Lowen; Left infiltrating with Ductal & Glandular features Gr II mod differentiated
--- OUTSIDE RECORDS SUMMARY | 2025-04-21 22:49 | XMS_ITS | Encounter Summary ---
Author Organization [facility] Address [address] [place] [address] Care Team Providers Care Load Checker Name Role Phone Jules Lloyd MD Primary Care Provider [phone] Encounter Details Date Type Department Care Team ([facility] st Contact Info) Description 03/10/2025 Results Follow-Up [facility] [address] [facility] [address] [place] [address] Amrita Ledesma NP [address] [place] [address] [place] [id number] Social History Tobacco Use Types Packs/Day Years [...] care for your loved ones. For example, director of early childhood or elderly care for an older adult? [...] AM EST documented as of this encounter Plan of Treatment Upcoming Encounters Date Type Department Care Team (Late st Contact Info) Description 05/12/2025 9:15 AM EST Office Visit [facility] Hematology Oncology [address] [place] [address] Vivi Mcintyre MD [address] [place] [address] 05/12/2025 9:30 AM EST Appointment [facility] [address] [place] [address] [address] [place] [address] 07/23/2025 10:00 AM EDT Office Visit [facility] [address] [address] Jigar Smart MD [address] [place] [address] 08/06/2025 11:15 AM EDT Office Visit Adult Medicine [address] [address] Jules Lloyd MD [address] [place] [address] documented as of this encounter Visit Diagnoses Not on filedocumented in this encounter Additional Health Concerns Assessment Noted Time PHQ-9 Depression Total Score: 0 01/30/20 25 4:58 PM EDT documented as of this encounter Care Teams Load Checker Relationship Specialty Start Date End Date Jules Lloyd MD [address] [place] [address] PCP - General Internal Medicine 05/22/17 documented as of this encounter
--- OUTSIDE RECORDS SUMMARY | 2025-04-21 22:49 | XMS_ITS | Encounter Summary ---
Author Organization [facility] [place] [address] Care Team Providers Care Console Operator Name Role Phone Jules Lloyd MD Primary Care Provider [phone] Encounter Details Date Type Department Care Team ([facility] st Contact Info) Description 03/26/2025 Results Follow-Up Adult Medicine [facility] [place] [address] [place] [address] Jules lLoyd MD [address] [place] [address] Social History Tobacco Use Types Packs/Day Years [...] for your loved ones. For example, child life assistant or elderly care for an older adult? [...] Description 05/12/2025 9:15 AM EST Office Visit [facility] Hematology Oncology [address] [place] [address] Vivi Mcintyre MD [address] [place] [address] 05/12/2025 9:30 AM EST Appointment [facility] [address] [place] [phone] 07/23/2025 10:00 AM EDT Office Visit [facility] [address] [phone] Jigar Smart MD [address] [place] [address] 08/06/2025 11:15 AM EDT Office Visit Adult Medicine [address] [address] Jules Lloyd MD [address] [place] [phone] documented as of this encounter Visit Diagnoses Not on filedocumented in this encounter Additional Health Concerns Assessment Noted Time PHQ-9 Depression Total Score: 0 01/30/20 25 4:58 PM EDT documented as of this encounter Care Teams Console Operator Relationship Specialty Start Date End Date Jules Lloyd MD [address] [place] [address] PCP - General Internal Medicine 05/22/17 documented as of this encounter
--- OUTSIDE RECORDS SUMMARY | 2025-04-21 22:49 | XMS_ITS | Clinical Summary ---
Author Organization [facility] Prior to 10/05/24 Address [address] [place] [address] Care Team Providers Care Salesman/Owner Name Role Phone Jules Lloyd MD Primary Care Provider [phone] Allergies Active Allergy Reactions Criticality Noted Date Comments Cephalexin 08/01/2017 Other 01/09/2007 Sulfa Antibiotics 08/01/2017 Medications Medication Sig Dispensed Refills Start Date End Date Status pravastatin (PRAVACHOL) tablet 10 mg TAKE 1 TABLET BY MOUTH EVERY DAY 0 07/24/2017 Active dilTIAZem (CARDIZEM CD) 120 MG 24 hr capsule Take 1 capsule (120 mg total) by mouth daily. 0 Active lidocaine-prilocaine (EMLA) creamIndications:Rec urrent malignant neoplasm of left breast (HCC) Apply topically as needed. 30 g 0 11/27/2023 Active dexamethasone (DECADRON) 4 MG tabletIndications:Re current malignant neoplasm of left breast (HCC) Take 2 tablets (8 mg total) by mouth daily. Take on Days 2, 3, and 4 24 tablet 0 11/28/2023 Active Benadryl soln 12.5mg/5 mL:Maalox:Lidocaine Viscous 2% mouth wash 1:1:1 Swish and spit 15 mL every 4 (four) hours as needed. 120 mL 1 12/04/2023 Active ondansetron (ZOFRAN) 8 MG tablet Take 1 tablet (8 mg total) by mouth every 8 (eight) hours as needed for nausea. 20 tablet 0 12/19/2023 Active prochlorperazine (COMPAZINE) 10 MG tabletIndications:Re current malignant neoplasm of left breast (HCC) TAKE 1 TABLET(10 MG) BY MOUTH EVERY 6 HOURS NEEDED FOR NAUSEA OR VOMITING 60 tablet 1 12/29/2023 Active nystatin (MYCOSTATIN) 627597 UNIT/ML suspension Take 5 mL (500,000 Units total) by mouth 4 (four) times a day. 60 mL 0 01/31/2024 Active fluconazole (DIFLUCAN) 100 MG tablet Take 1 tablet (100 mg total) by mouth every 12 (twelve) hours. 14 tablet 0 02/05/2024 Active Active Problems Problem Noted Date Diagnosed Date Recurrent malignant neoplasm of left breast 11/05 Social History Tobacco Use Types Packs/Day Years Used Date Smoking Tobacco: Never Assessed Sex and Gender Information Value Date Recorded Sex Assigned at Female 12/18/2023 12:47 PM EDT Gender Identity Not on file Sexual Orientation Not on file Job Start Date Occupation Industry Not on file Not on file Not on file Last Filed Vital Signs Vital Sign Reading Time Taken Comments Blood Pressure 116/55 02/08/2024 9:00 AM EDT Pulse 71 02/08/2024 9:00 AM EDT Temperature 37.2 C (98.9 F) 02/08/2024 9:00 AM EDT Respiratory Rate 18 02/01/2024 9:38 AM EDT Oxygen Saturation 100% 02/08/2024 9:00 AM EDT Inhaled Oxygen Concentration - - Weight 77.8 kg (171 lb 9.6 oz) 02/05/2024 10:08 AM EDT Height 162.6 cm (5' 4 ) 01/30/2024 9:26 AM EDT Body Mass Index 29.45 01/30/2024 9:26 AM EDT Plan of Treatment Health Maintenance Due Date Last Done Comments Hepatitis C Screening 1950 Pneumococcal Vaccine (1 of 2 - PCV) 1954 Depression Screening 1960 BMI Counseling 1966 Preventative Health Evaluation 1966 Shingrix-Zoster Vaccine (1 o f 2) 1967 Fall Risk Assessment 2013 Osteoporosis Screening (DEXA Scan) 2013 RSV Adult > 60+ Yrs or (1 - 1-dose 75+ series) 2023 COVID-19 Vaccine (2024-2 6 season) 2025 03/19/2021, 07/23/2020, 07/02/2020 Influenza Vaccine (#1) 2025 DTap / Tdap / Td (2 - Td or Tdap) 06/27/2026 06/27/2016 Hepatitis B Vaccines Aged Out No long er eligible based on patient's age to complete this topic RSV Ped < 20 months Aged Out No longe r eligible based on patient's age to complete this topic Care Teams Salesman/Owner Relationship Specialty Start Date End Date Jules Lloyd MD PCP - General Internal Medicine 06/29/17
--- OUTSIDE RECORDS SUMMARY | 2025-04-21 22:49 | XMS_ITS | Clinical Summary ---
Author Organization [facility] Address [address] [place] [address] Phone Care Team Providers Care Supervisor Mails Name Role Phone Jules Lloyd MD Primary Care Provider [phone] Allergies Active Allergy Reactions Criticality Noted Date Comments Bee Pollen Anaphylaxis High 02/09/2024 Bee sting Cephalexin Hives High 08/12/2005 Sulfa (Sulfonamide Antibiotics) Rash Medium 07/07 Medications omeprazole OTC (PriLOSEC OTC) 20 mg EC tablet Take 1 tablet (20 mg total) by mouth 2 (two) times a day. Do not crush, chew, or split. Prescribed by Dr. Garcia Active pravastatin (PRAVACHOL) 20 mg tablet TAKE 1 TABLET BY MOUTH DAILY 90 tablet 2 5 Active dilTIAZem CD (CARDIZEM CD) 120 mg 24 hr capsule TAKE 1 CAPSULE BY MOUTH DAILY 90 capsule 1 5 Active EpiPen 2-Michel 0.3 mg/0.3 mL injection Inject 0.3 mL (0.3 mg total) into the thigh if needed for anaphylaxis. Prescribed by Dr. Lloyd 1 each 5 Active Hospital, Clinic, or Other Facility Administered Medication Ordered Dose Route Frequency Start Date End Date Status lidocaine-prilocaine (EMLA) cream 1 ApplicationIndications:Malig nant neoplasm of left breast in female, estrogen receptor positive, unspecified site of breast (CMS/HCC V24, CMS/HCC V28),Recurrent malignant neoplasm of left breast (CMS/HCC V24, CMS/HCC V28) 1 Application TP As needed 04/23/2024 Active Active Problems Problem Noted Date Diagnosed Date Meningioma 09/18/2024 Recurrent malignant neoplasm of left breast 11/05 Cancer Staging:Pathologic: ypT4b, pN0(i+), cM0, G2, ER+, ND+, HER2- - Signed by Anastasiya Christianson MD [...] 41.67 on 02/21/13. Tinnitus 11/16/2011 Overview (02/09/2024): 11/16 Carotid stenosis 09/12/2011 Overview (02/09/2024): 08/17; No [...] Smoking 11/20/2007 Cervicalgia 02/07/2007 Overview (02/09/2024): Memo; HNP C3-4 Mitral valve disorder 10/17/2005 Overview (02/09/2024): Mild-moderate regurgitation 2008 IMO update Resolved Problems Problem Noted Date Diagnosed Date Resolved Date Malignant neoplasm of unspec ified site of left female breast 03/25/2024 06/19/2024 Breast cancer 10/15/2009 06/19/2024 Overview (02/09/2024): 10/15; Daisy Cuellar Lowen; Left infiltrating with Ductal & Glandular features Gr II mod differentiated Encounters Date Type Department Care Team Description 04/07/2025 Telephone [facility] - [address] [place] [phone] Ayleen Lim MA 04/01/2025 9:15 AM EST - 04/01/2025 11:59 PM EST Hospital Encounter [facility] [address]nd [place] [phone] Vivi Mcintyre MD Stenosis of right carotid artery; Dyslipidemia Discharge Disposition: Home or Self Care 03/31/2025 9:15 AM EST Ancillary Procedure [facility] - [address] [place] [address] Stenosis of right carotid artery 03/26/2025 Results Follow-Up Adult Medicine [address] [phone] Jules Lloyd MD 03/20/2025 9:39 AM EST - 03/20/2025 11:59 PM EST Hospital Encounter Radiology Department - [address] [phone] Meningioma (CMS/HCC V24, CMS/HCC V28) Discharge Disposition: Home or Self Care 03/10/2025 Results Follow-Up [facility] - [address] [place] [address] Amrita Ledesma NP 03/03/2025 8:30 AM EDT Ancillary Procedure [facility] [address] [place] [address] Aortic aneurysm without rupture, unspecified portion of aorta ([facility]/HCC V24) 02/28/2025 Results Follow-Up [facility] [address] [place] [address] Anastasiya Saenz MA 02/04/2025 10:30 AM EDT Office Visit Adult Medicine [address] [phone] Ruth Martino NP Routine general medical examination at a health care facility (Primary Dx); Decrease in appetite 02/04/2025 9:19 AM EDT - 02/04/2025 11:59 PM EDT Hospital Encounter [facility] [address] [facility] [address] [place] [address] Vivi Mcintyre MD Recurrent malignant neoplasm of left breast (CMS/HCC V24, CMS/HCC V28) [C50.912] (Primary Dx); Recurrent malignant neoplasm of left breast (CMS/HCC V24, CMS/HCC V28) Discharge Disposition: Home or Self Care 02/03/2025 Telephone Adult Medicine [address] [phone] Jules Lloyd MD 01/30/2025 7:40 AM EDT Office Visit [facility] - [facility] [address] [facility] [address] [place] [phone] Amrita Ledesma NP Hypertension, unspecified type (Primary Dx); Aortic aneurysm without rupture, unspecified portion of aorta (CMS/HCC V24); Stenosis of right carotid artery; Dyslipidemia 01/28/2025 1:54 PM EDT - 01/28/2025 11:59 PM EDT Hospital [facility] [address] [phone] Malignant neoplasm of lower-inner quadrant of left breast in female, estrogen receptor positive (CMS/HCC V24, CMS/HCC V28); History of left breast cancer; History of modified radical mastectomy of left breast; Encounter for screening mammogram for malignant neoplasm of breast Discharge Disposition: Home or Self Care 01/22/2025 10:15 AM EDT Office Visit [facility] [address] [phone] Jigar Smart MD Malignant neoplasm of lower-inner quadrant of left breast in female, estrogen receptor positive (CMS/HCC V24, CMS/HCC V28) (Primary Dx); History of left breast cancer; History of modified radical mastectomy of left breast; Encounter for screening mammogram for malignant neoplasm of breast from Last 3 Months Immunizations Immunization Administration Dates Next Due Influenza trivalent, 0.5mL, preservative free (Fluarix; FluLaval; Fluzone) ages 6mo and older (Afluria) 3 years and older 02/15/2010,02/15/2008,02/07/2007 Influenza trivalent, with pr eservative (Fluzone; Afluria) 6mo and older 02/15/2010,02/15/2008,02/07/2007 Pfizer SARS-CoV-2 COVID-19, mRNA, LNP-S, preservative free 03/19/2021,07/23/2020,07/02/2020 Td Tetanus diptheria (Tdvax) 7yo and older 05/08 Tdap Tetanus diptheria acell ular pertussis (Boostrix; Adacel) 7yo and older 06/27/2016 Surgical History Surgery Date Site/Laterality Comments JOINT REPLACEMENT PROCEDURE:JOINT REPLACEMENT SECTION PROCEDURE: SECTION WRIST SURGERY PROCEDURE:WRIST SURGERY HYSTERECTOMY PROCEDURE:HYSTERECTOMY SHOULDER SURGERY 05/08/1989 - 05/07/1990 PROCEDURE:SHOULDER SURGERY BACK SURGERY PROCEDURE:BACK SURGERY HYSTERECTOMY 1997 PROCEDURE: HISTORICAL TOTAL HYSTERECTOMY WITH BSO; COMMENT: CARMEN/BSO TUBAL LIGATION PROCEDURE: HISTORICAL TUBAL LIGATION OTHER SURGICAL HISTORY PROCEDURE: ND ARTHRS KNEE W/MENISCECTOMY MED&LAT W/SHAVING; COMMENT: bilat TOTAL KNEE ARTHROPLASTY 04/10 PROCEDURE: ND ARTHRP KNE CONDYLE&PLATU MEDIAL&LAT COMPARTMENTS; COMMENT: Adams; Left OTHER SURGICAL HISTORY 10/12 PROCEDURE: MAMMOGRAM; COMMENT: neg CERVICAL LAMINECTOMY 1999 PROCEDURE: HISTORICAL CERV LAMINECTOMY; COMMENT: Gabe; dee BREAST BIOPSY 2009 Left PROCEDURE: BX BREAST; PERC NEEDLE CORE W/IMAG GUID BREAST SURGERY 2009 Left PROCEDURE: ND UNLISTED PROCEDURE BREAST; COMMENT: lumpectomy w radiation tx & chemo MASTECTOMY Medical History Medical History Date Comments Cancer ([facility] V24, [facility] V28) DX:Cancer ([facility]) Heart murmur DX:Heart murmur Arthritis DX:Arthritis Mitral valve disorders(424.0) 10/17/2005 DX :Mitral valve disorders(424.0) Carpal tunnel syndrome 10/17/2005 DX:Carpal tunnel syndrome Cervicalgia 02/07/2007 DX:Cervicalgia; COMMENT: Pramod CARSONP C3-4 History of breast cancer 02/13/2013 DX:Hist ory of breast cancer Breast cancer ([facility] V24, [facility] V28) 10/15/2009 DX:Breast cancer ([facility]); COMM ENT: october 2009 - left side lumpectomy PONV (postoperative nausea a nd vomiting) GERD (gastroesophageal reflux disease) Heart valve disease Family History Medical History Relation Name Comments Lung cancer Father Colon cancer Father's Brother Heart failure Mother Colon cancer Paternal Grandfather Autoimmune disease Neg Hx Breast cancer Neg Hx Coronary artery disease Neg Hx Diabetes Neg Hx Heart attack Neg Hx Hyperlipidemia Neg Hx Hypertension Neg Hx Mental illness Neg Hx Prostate cancer Neg Hx Sleep apnea Neg Hx Thyroid disease Neg Hx Relation Name Status Comments Father Father's Brother Mother Paternal Grandfather Social History Tobacco Use Types Packs/Day Years Used Date Smoking Tobacco: Every Day Cigarettes 0.5 55 Started: [birth year]/08/1969 Smokeless Tobacco: Never Tobacco Cessation:Ready to Q uit: Not Asked; Counseling Given: Not Answered Alcohol Use Standard Drinks/Week Comments Not Currently [...] your loved ones. For example, early childhood teacher assistant or elderly care for an older [...] Orientation Straight 04/23/2024 7: 04 AM EST Obstetrics History Para Term AB IAB SAB Ectopic Multiple Livin g Live Births 5 4 Date Outcome GA Total Labor Labor/2nd/3rd Weight Sex Type Anes PTL Mary Ellen A1 A5 Name Clin Para Para Para Para Last Filed Vital Signs Vital Sign Reading Time Taken Comments Blood Pressure 152/81 03/03/2025 9:06 AM EDT Pulse 64 02/04/2025 10:54 AM EDT Temperature 36.3 C (97.4 F) 02/04/2025 10:54 AM EDT Respiratory Rate 16 09/06/2024 8:46 AM EDT Oxygen Saturation 100% 02/04/2025 10:54 AM EDT Inhaled Oxygen Concentration - - Weight 71.2 kg (157 lb) 03/03/2025 9:06 AM EDT Height 162.6 cm (5' 4 ) 03/03/2025 9:06 AM EDT Body Mass Index 26.95 03/03/2025 9:06 AM EDT Plan of Treatment Upcoming Encounters Date Type Department Care Team (Late st Contact Info) Description 05/12/2025 9:15 AM EST Office Visit [facility] Hematology Oncology [address] [place] [phone] Vivi Mcintyre MD [address] [place] [phone] 05/12/2025 9:30 AM EST Appointment [facility] [address] [place] [phone] 07/23/2025 10:00 AM EDT Office Visit Breast Care [address] [phone] Jigar Smart MD [address] [place] [phone] 08/06/2025 11:15 AM EDT Office Visit Adult Medicine [facility] [address] [place] [address] Jules Lloyd MD [address] [place] [address] Health Maintenance Due Date Last Done Comments Colorectal Cancer Screening: Stool Based Tests (FOBT/FIT) 04/16/2022 Lung Cancer Screening (Low Dose CT) 08/14/2023 08/13/2022, 08/06/2021, 08/06/2020 Hypertension/CHF/CAD Annual BMP Blood Test 09/11/2025 09/11/2024, 06/02/2023 Social Influencers of Health Screening 01/29/2026 01/29/2025 Falls Risk Assessment 02/04/2026 02/04/2025, 024 Medicare Annual Wellness Visit 02/04/2026 02/04/2025 DTaP,Tdap,and Td Vaccines (3 - Td or Tdap) 06/27/2026 06/27/2016, 05/08/2002 Cholesterol Screening (Lipid Panel) 04/01/2030 04/01/2025, 11/23/2023, 11/23/2023 Osteoporosis Screening (Bone Density Screening) 09/14/2033 09/15/2023, 09/15/2023 Influenza Vaccine Discontinued 02/15/2010, , 02/15/2008, Additional history exists Hepatitis C Screening Completed 05/31/2013 COVID-19 Vaccine Discontinued 03/19/2021, , 07/02/2020 Colorectal Cancer Screening: Colonoscopy Discontinued 10/08/2021 Breast Cancer Screening Discontinued 01/29/20, 12/07/2022, 12/02/2021, Additional history exists Depression Screening Completed 01/29/2025, 06/02/19 HIB Vaccines Aged Out No longer eligi ble based on patient's age to complete this topic HPV Vaccines Aged Out No longer eligi ble based on patient's age to complete this topic Hepatitis A Vaccines Aged Out No long er eligible based on patient's age to complete this topic Hepatitis B Vaccines Aged Out No long er eligible based on patient's age to complete this topic IPV Vaccines Aged Out No longer eligi ble based on patient's age to complete this topic MMR Vaccines Aged Out No longer eligi ble based on patient's age to complete this topic Meningococcal ACWY Vaccine Aged Out N o longer eligible based on patient's age to complete this topic Meningococcal B Vaccine Aged Out No l onger eligible based on patient's age to complete this topic Pneumococcal Vaccine: 50+ Years Discontinued RSV Immunization Adult Patients Discontinued RSV Immunization Patients Under 20 months Aged Out No longer eligible based on patient's age to complete this topic Varicella Vaccines Aged Out No longer eligible based on patient's age to complete this topic Zoster Vaccines Discontinued Medical Devices Implanted Type Area Chemical Mixer Device Identifier Shelf Expiration Date Model / Serial / Lot Hemostat Flour Collgn 1gm Avitene - Sn/A - [id number] Implanted:Qty: 1 on 04/23/2024 by Jigar Smart MD at [facility] Hemostasis Left: Breast CR BARD - DAVOL DIV [id number] / N/A / N/A Procedures Procedure Name Priority Date/Time Associated Diagnosis Comments LIPID PANEL WITH REFLEX TO DIRECT LDL Routine 04/01/2025 9:17 AM EST Stenosis of right carotid artery Dyslipidemia VAS US DUPLEX CAROTID BILATERAL Routine 03/31/2025 9:21 AM EST Stenosis of right carotid artery MR BRAIN WO CONTRAST Routine 03/20/2025 10:56 AM EST Meningioma ([facility]/HCC V24, CMS/HCC V28) TRANSTHORACIC ECHOCARDIOGRAM (TTE) COMPLETE Routine 03/03/2025 9:06 AM EDT Aortic aneurysm without rupture, unspecified portion of aorta ([facility]/HCC V24) ECG 12-LEAD Routine 01/30/2025 8:28 AM EDT Hypertension, unspecified type MG MAMMO DIGITAL SCREENING W JAYCOB RIGHT Routine 01/28/2025 2:23 PM EDT Malignant neoplasm of lower-inner quadrant of left breast in female, estrogen receptor positive (CMS/HCC V24, CMS/HCC V28) History of left breast cancer History of modified radical mastectomy of left breast Encounter for screening mammogram for malignant neoplasm of breast COMPREHENSIVE METABOLIC PANEL Routine 09/11/2024 3:27 PM EDT Bilateral carotid artery stenosis Pulsatile tinnitus of right ear DXA BONE DENSITY STUDY 1+ SITS AXIAL SKEL Routine 09/15/2023 11:43 AM EDT Other specified personal risk factors, not elsewhere classified DEPRESSION SCREENING Routine 06/02/2023 FALLS RISK ASSESSMENT Routine 06/02/2023 CT LUNG SCREENING LOW DOSE Routine 08/13/2022 10:00 AM EDT Personal history of nicotine dependence COLONOSCOPY Routine 10/08/2021 HEPATITIS C SCREENING Routine 05/31/2013 from Last 3 Months or Most Recently Relevant to Health Maintenance Results * Lipid panel with reflex to direct LDL (04/01/2025 9:17 AM EST) Cholesterol 154 0 - 200 mg/dL 04/01/2025 10:47 AM [facility] Triglycerides 67 0 - 150 mg/dL 04/01/2025 10:47 AM [facility] HDL 58 >=40 mg/dL 04/01/2025 10:47 AM [facility] LDL Calculated 83 0 - 100 mg/dL 04/01/2025 10:47 AM [facility] Comment:Estimated LDL Calcul ated using equation: Total cholesterol - HDL cholesterol - (Triglycerides/5) VLDL Cholesterol Shiva 13.4 mg/dL 04/01/2025 10:47 AM [facility] Non HDL Chol. (LDL+VLDL) 96 <145 mg/dL 04/01/2025 10:47 AM EST [facility] Chol/HDL Ratio 2.7 0.0 - 4.4 04/01/2025 10:47 AM EST [facility] Blood Venous blood specimen / Unknown Venipuncture / Unknown 04/01/2025 9:17 AM EST 04/01/2025 9:33 AM EST us Amrita Ledesma [employer] [facility] LAB BLOOD ORDERABLES F inal Result [facility] [address] [place] [address], [place] [phone] * Vascular US duplex carotid bilateral (03/31/2025 9:21 AM EST) Left CCA dist alexandre 17 cm/s CV [facility] LAB Left CCA dist sys 57 cm/s [facility] LEFT COMMON CAROTID ARTERY MID D 17 cm/s CV [facility] LEFT COMMON CAROTID ARTERY MID S 66 cm/s CV [facility] LAB Left CCA prox alexandre 18 cm/s CV VAS LAB Left CCA prox sys 74 cm/s CV [facility] LAB LEFT EXTERNAL CAROTID ARTERY D 21 cm/s CV [facility] LAB Left ECA sys 66 cm/s CV [facility] LAB Left ICA/CCA sys 1.00 CV [facility] LAB Left ICA dist alexandre 23 cm/s CV VAS LAB Left ICA dist sys 57 cm/s CV VAS LAB Left ICA mid alexandre 15 cm/s CV VAS LAB Left ICA mid sys 45 cm/s CV VAS LAB Left ICA prox alexandre 17 cm/s CV VAS LAB Left ICA prox sys 51 cm/s CV [facility] LAB Left vertebral sys 47 cm/s CV [facility] LAB Right CCA dist alexandre 13 cm/s CV [facility] LAB Right cca dist sys 48 cm/s CV [facility] LAB RIGHT COMMON CAROTID ARTERY MID D 16 cm/s CV VAS LAB RIGHT COMMON CAROTID ARTERY MID S 50 cm/s CV VAS LAB Right CCA prox alexandre 11 cm/s CV VAS LAB Right CCA prox sys 44 cm/s CV VAS LAB RIGHT EXTERNAL CAROTID ARTERY D 12 cm/s CV VAS LAB Right eca sys 67 cm/s CV VAS LAB Right ICA/CCA sys 1.80 CV [facility] LAB Right ICA dist alexandre 27 cm/s CV VAS LAB Right ICA dist sys 89 cm/s CV VAS LAB Right ICA mid alexandre 17 cm/s CV VAS LAB Right ICA mid sys 57 cm/s CV VAS LAB Right ICA prox alexandre 15 cm/s CV VAS LAB Right ICA prox sys 48 cm/s CV [facility] LAB Right vertebral sys 50 cm/s CV [facility] LAB Left Prox Subclavian PSV 68 cm/s CV [facility] LAB Right Prox Subclavian PSV 81 cm/s [facility] Right Bulb PSV 45 cm/s CV [facility] Right Bulb EDV 8 cm/s [facility] Right arm BP 133 mmHg [facility] Left Bulb PSV 35 cm/s CV [facility] LAB Left Bulb EDV 12 cm/s CV [facility] LAB Anatomical Region Laterality Modality Vascular, Abdomen Ultrasound Narrative 04/01/2025 9:42 PM EST Right ICA: There is minimal heterogeneous plaque. Left ICA: There is minimal heterogeneous plaque. RIGHT. 1. There is atherosclerotic plaque in the carotid system as noted below. 2. There is less than 50% stenosis in the internal carotid artery based on Doppler velocity. 3. The subclavian artery has normal Doppler flow pattern. 4. Vertebral artery has normal antegrade flow. LEFT. 1. There is atherosclerotic plaque in the carotid system as noted below. 2. There is less than 50% stenosis in the internal carotid artery based on Doppler velocity. 3. The subclavian artery has normal Doppler flow pattern. 4. Vertebral artery has normal antegrade flow. Right Carotid There is evidence of intimal thickening in the CCA. The bifurcation has mild heterogeneous plaque. The ICA has minimal heterogeneous plaque. The ECA has minimal heterogeneous plaque. The subclavian artery waveforms are triphasic. Vertebral flow is antegrade. Left Carotid Unable to obtain left BP due to breast cancer. There is evidence of intimal thickening in the CCA. The bifurcation has mild heterogeneous plaque. The ICA has minimal heterogeneous plaque. The ECA has minimal heterogeneous plaque. The subclavian artery waveforms are triphasic. Vertebral flow is antegrade. Investigations Consultant Details A bella scale, color and doppler analysis ultrasound was performed. During the study longitudinal and transverse views were obtained. Continuous wave doppler and pulsed wave doppler was performed. Overall the study quality was good. us Amrita Ledesma NP CV VASCULAR PROCEDURES Final Result * MR Brain wo Contrast (03/20/2025 10:56 AM EST) Anatomical Region Laterality Modality Head and Neck Magnetic Resonan ce 03/20/2025 10:5 8 AM EST Impressions 03/20/2025 11:10 AM EST Stable 0.9 x 1.4 x 0.9 cm meningioma at the vertex to the right of the falx. Stable moderate white matter disease. Partially empty sella. -------- FINAL REPORT -------- Dictated By: Nirmala Henson Dictated Date: 03/20/2025 10:58 ET Assigned Physician: Nirmala Henson Reviewed and Electronically Signed By: Nirmala Henson Signed Date: 03/20/2025 11:10 ET Workstation ID: [id number] Transcribed By: Self Edit Transcribed Date: 03/20/2025 10:58 ET Narrative 03/20/2025 11:10 AM EST MR BRAIN WO CONTRAST HISTORY: Follow-up MRI in meningioma. TECHNIQUE: Contiguous axial images were obtained from the skull base to the vertex without contrast. PRIOR STUDIES: Brain MRI 09/17/2024. FINDINGS: 0.9 x 1.4 x 0.9 cm meningioma, previously 0.9 x 1.4 x 1.0 cm, at the vertex to the right of the falx is again noted. There are patchy and confluent areas of T2/FLAIR prolongation in the periventricular, deep and subcortical white matter, not significantly changed.. There is no acute intracranial hemorrhage. The bella/white matter differentiation is preserved. The ventricles and sulci are normal in size and symmetric. The basal cisterns are patent. There is no mass effect or midline shift. There are no intra or extra-axial fluid collections identified. No skull fractures are seen. The paranasal sinuses and mastoid air cells are clear. There is no abnormality at the foramen magnum. The sella turcica remains expanded. There is a partially empty sella. Infundibulum is midline. Procedure Note Nirmala Henson MD - 03/20/2025 MR BRAIN WO CONTRAST HISTORY: Follow-up MRI in meningioma. TECHNIQUE: Contiguous axial images were obtained from the skull base tothe vertex without contrast. PRIOR STUDIES: Brain MRI 09/17/2024. FINDINGS: 0.9 x 1.4 x 0.9 cm meningioma, previously 0.9 x 1.4 x 1.0 cm, at thevertex to the right of the falx is again noted. There are patchy and confluent areas of T2/FLAIR prolongation in theperiventricular, deep and subcortical white matter, not significantlychanged.. There is no acute intracranial hemorrhage. The bella/white matterdifferentiation is preserved. The ventricles and sulci are normal in sizeand symmetric. The basal cisterns are patent. There is no mass effect ormidline shift. There are no intra or extra-axial fluid collectionsidentified. No skull fractures are seen. The paranasal sinuses and mastoid air cellsare clear. There is no abnormality at the foramen magnum. The sella turcica remains expanded. There is a partially empty sella.Infundibulum is midline. IMPRESSION: Stable 0.9 x 1.4 x 0.9 cm meningioma at the vertex to the right of thefalx. Stable moderate white matter disease. Partially empty sella. -------- FINAL REPORT -------- Dictated By: Nirmala Henson Dictated Date: 03/20/2025 10:58 ET Assigned Physician: Nirmala Henson Reviewed and Electronically Signed By: Nirmala Henson Signed Date: 03/20/2025 11:10 ET Workstation ID: [id number] Transcribed By: Self Edit Transcribed Date: 03/20/2025 10:58 ET us Jad ALLISON IMG MRI PROCEDURES Final Result * (ABNORMAL) TRANSTHORACIC ECHOCARDIOGRAM (TTE) COMPLETE (03/03/2025 9:06 AM EDT) BSA 1.79 m2 CV PACS Left [facility] [place] 5.8 cm CV PACS Left [facility] [place] 5.2 cm CV PACS LA Area Sys (A2C) 23 cm2 CV PACS LA Area Sys (A4C) 19 cm2 CV PACS LA Volume (BP) 66 mL CV PACS RA Area 19.3 cm2 CV PACS RA 2D Volume 53 mL CV PACS AV Mean Gradient 10 mmHg CV PACS Ao VTI 48.8 cm CV PACS AV Peak Aristeo 2.1 m/s CV PACS AV Peak Gradient 17 mmHg CV PACS AV Area Continuity Equation 1.9 cm2 CV PACS AV Area Peak Velocity 2.0 cm2 CV PACS Aortic Sinus Valsalva 3.5 cm CV PACS Ascending Aorta 4.0 cm CV PACS IVSD 1.1(A) 0.6 - 0.9 cm CV PACS LVIDD 4.3 3.8 - 5.2 cm CV PACS LVIDS 2.7 2.2 - 3.5 cm CV PACS LVOT Diameter 1.9 cm CV PACS LVOT Mean Aristeo 0.9 m/s CV PACS LVOT Mean Grad 4 mmHg CV PACS LVOT Mean Grad 4 mmHg CV PACS LVOT Peak VTI 33.3 cm CV PACS LVOT Peak Aristeo 1.4 m/s CV PACS LVOT Peak Gradient 8 mmHg CV PACS LVPWD 1.1(A) 0.6 - 0.9 cm CV PACS MV E' Tissue Velocity Lateral 10 cm/s CV PACS MV E' Tissue Velocity Septal 6 cm/s CV PACS LVOT Area 2.8 cm2 CV PACS LVOT Stroke Volume 95 mL CV PACS MV Deceleration Boundary 3.5 m/s2 CV PACS E Wave Deceleration Time 279(A) 119 - 242 ms CV PACS MV PHT 82 ms CV PACS MV Peak A Aristeo 0.77 m/s CV PACS MV Peak E Aristeo 0.97 m/s CV PACS MV Mean Gradient 2 mmHg CV PACS MV Mean Gradient 2 mmHg CV PACS MV VTI 37.7 cm CV PACS Mitral Valve Max Velocity 0.9 m/s CV PACS MV Peak Gradient 4 mmHg CV PACS MV Area PHT 2.7 cm2 CV PACS MV Area Continuity Equation 2.5 cm2 CV PACS PV Acceleration Time 113 ms CV PACS PV Acceleration Time 155 ms CV PACS PV Acceleration Time 134 ms CV PACS RV Diastolic Basal Dimension 4.2(A) 2.5 - 4.1 cm CV PACS RV S' 16 cm/s CV PACS TAPSE 32 mm CV PACS TR Peak Velocity 1.78 m/s CV PACS TR Peak Gradient 13 mmHg CV PACS E/E' Ratio Septal 16 CV PACS E/E' Ratio Averaged 13 CV PACS LVOT Stroke Index 54 mL/m2 CV PACS Relative Wall Thickness ratio 0.51 CV PACS LVOT:AV VTI Index 0.68 CV PACS FS 37 % CV PACS LV Mass 2D 163 g CV PACS Ascending Aorta Index 2.27 cm/m2 CV PACS MV VTI:LVOT VTI ratio 1.1 CV PACS LVOT flow 255 mL/s CV PACS RA 2D Volume Index 30 mL/m2 CV PACS ALESIA Index (VTI) 1.10 cm2/m2 CV PACS ALESIA Index (Pk Aristeo) 1.14 cm2/m2 CV PACS LVIDD Index 2.44 cm/m2 CV PACS LVIDS Index 1.53 cm/m2 CV PACS AV Velocity Ratio 0.67 CV PACS E/A Ratio 1.3 CV PACS E/E' Ratio Lateral 10 CV PACS LA Volume Index (BP) 38 mL/m2 CV PACS LV Mass Index 2D 93 g/m2 CV PACS Anatomical Region Laterality Modality Ultrasound Narrative 03/07/2025 1:12 PM EDT Left ventricle cavity size is normal. Left ventricular systolic function is in the normal range with an ejection fraction of 60-65%. No regional LV wall motion abnormalities noted. Left ventricle mild concentric hypertrophy. Right ventricle cavity is mildly enlarged. Right ventricular systolic function is normal. Left atrium moderately enlarged. Right atrium mildly dilated. No hemodynamically significant valve disease. The ascending aorta is dilated (4.0 cm). Compared to 2023, there is no significant change. Left Ventricle Left ventricle cavity size is normal. There is mild concentric hypertrophy. Systolic function is normal with an ejection fraction of 60-65%. LV global longitudal strain is normal. There are no regional LV wall motion abnormalities. Indeterminate diastolic function. Global longitudinal strain at -27.1%. Right Ventricle Right ventricle cavity is mildly dilated. Systolic function is normal. Left Atrium Left atrium cavity is moderately dilated. Right Atrium Right atrium cavity is mildly dilated. IVC/SVC Inferior vena cava is dilated. RA pressures is estimated to be 8 mmHg (IVC diameter >21 mm and decreases >50% during inspiration). Mitral Valve The leaflets are mildly thickened. There is mild annular calcification. There is trace to mild regurgitation. There is no evidence of mitral valve stenosis. Tricuspid Valve Tricuspid valve structure is normal. There is trace regurgitation. There is no evidence of tricuspid valve stenosis. Aortic Valve The aortic valve is trileaflet. The leaflets are mildly thickened. There is no regurgitation or stenosis. Pulmonic Valve Visualized portions of the pulmonic valve appear normal. No significant pulmonic valve regurgitation. There is no evidence of pulmonic valve stenosis. Ascending Aorta The Sinus of Valsalva is (3.5 cm). The ascending aorta is (4.0 cm). Pericardium Pericardium appears normal. There is no pericardial effusion. Study Details Overall the study quality was adequate. Additional technique includes myocardial strain. Wall Scoring Baseline Score Index: 1.00 The left ventricular wall motion is normal. Amrita Ledesma NP CV ECHO PROCEDURES Fin al Result * ECG 12 lead (01/30/2025 8:28 AM EDT) Ventricular Rate ECG 71 BPM GEMUSE Atrial Rate 71 BPM GEMUSE P-R Interval 188 ms GEMUSE QRS Duration 92 ms GEMUSE Q-T Interval 394 ms GEMUSE QTc 428 ms GEMUSE P Wave [place] 69 degrees GEMUSE R [place] 72 degrees GEMUSE T [place] 73 degrees GEMUSE ECG Interpretation Sinus rhythm with Premature ventricular complexes Cannot rule out Anterior infarct , age undetermined Abnormal ECG When compared with ECG of 14-NOV-2023 13:14, Questionable change in QRS axis Confirmed by MD Bryan, Aleks ([id number]) on 01/30/2025 12:38:16 PM GEMUSE 01/30/2025 7:46 AM EDT 01/30/2025 12:38 PM EDT us Amrita Ledesma NP ECG ORDERABLES Edited Result - Final GEMUSE * MG Mammo Digital Screening w Jaycob Right (01/28/2025 2:23 PM EDT) Anatomical Region Laterality Modality Breast Right Mammography 01/28/2025 2:38 PM EDT Impressions 01/28/2025 2:55 PM EDT No evidence of breast malignancy. BI-RADS CATEGORY: 1 - NEGATIVE RECOMMENDATION: Screening right mammogram is recommended in 1 year. Mammo Location: [facility], [address] [place] [address], [id number], . -------- FINAL REPORT -------- Dictated By: Terrie Bedoya Dictated Date: 01/28/2025 14:38 ET Assigned Physician: Terrie Bedoya Reviewed and Electronically Signed By: Terrie Bedoya Signed Date: 01/28/2025 14:55 ET Workstation ID: [id number] Transcribed By: Self Edit Transcribed Date: 01/28/2025 14:43 ET Narrative 01/28/2025 2:55 PM EDT CLINICAL: 74 years old, Female, routine annual exam. Status post left mastectomy for invasive lobular carcinoma in 2023. COMPARISON: Multiple prior studies dating back to 2019 TECHNIQUE: Unilateral right MLO and CC views were obtained digitally with 3-D mammogram (digital breast tomosynthesis). Computer-aided detection was utilized in evaluation of this exam (CAD). FINDINGS: There is no evidence of suspicious mass or architectural distortion. No worrisome calcifications are evident. There has been no significant change from prior exam(s). BREAST DENSITY: B - There are scattered areas of fibroglandular density. Procedure Note Terrie Bedoay MD - 01/28/2025 CLINICAL: 74 years old, Female, routine annual exam. Status post leftmastectomy for invasive lobular carcinoma in 2023. COMPARISON: Multiple prior studies dating back to 2019 TECHNIQUE: Unilateral right MLO and CC views were obtained digitally with3-D mammogram (digital breast tomosynthesis). Computer-aided detection wasutilized in evaluation of this exam (CAD). FINDINGS: There is no evidence of suspicious mass or architectural distortion. Noworrisome calcifications are evident. There has been no significantchange from prior exam(s). BREAST DENSITY: B - There are scattered areas of fibroglandular density. IMPRESSION: No evidence of breast malignancy. BI-RADS CATEGORY: 1 - NEGATIVE RECOMMENDATION: Screening right mammogram is recommended in 1 year. Mammo Location: [facility], [address] [place] [address], [id number], . -------- FINAL REPORT -------- Dictated By: Terrie Bedoya Dictated Date: 01/28/2025 14:38 ET Assigned Physician: Terrie Bedoya Reviewed and Electronically Signed By: Terrie Bedoya Signed Date: 01/28/2025 14:55 ET Workstation ID: [id number] Transcribed By: Self Edit Transcribed Date: 01/28/2025 14:43 ET Jigar Smart MD IM BI PROCEDURES Final Result * Comprehensive metabolic panel (09/11/2024 3:27 PM EDT) Sodium 138 133 - 145 mmol/L LAB CHEMISTRY METHOD 09/11/2024 7:08 PM [facility] Potassium 3.9 3.5 - 5.5 mmol/L LAB CHEMISTRY METHOD 09/11/2024 7:08 PM [facility] Chloride 103 96 - 110 mmol/L LAB CHEMISTRY METHOD 09/11/2024 7:08 PM [facility] CO2 29 21 - 32 mmol/L LAB CHEMISTRY METHOD 09/11/2024 7:08 PM [facility] Anion Gap 6 3 - 11 LAB CHEMISTRY METHOD 09/11/2024 7:08 PM [facility] Glucose 91 70 - 100 mg/dL LAB CHEMISTRY METHOD 09/11/2024 7:08 PM [facility] BUN 18 5 - 25 mg/dL LAB CHEMISTRY METHOD 09/11/2024 7:08 PM [facility] Creatinine 0.76 0.50 - 1.10 mg/dL LAB CHEMISTRY METHOD 09/11/2024 7:08 PM [facility] eGFR 81 >=60 mL/min/1. 73m2 LAB CHEMISTRY METHOD 09/11/2024 7:08 PM [facility] Comment:Calculation based on the Chronic Kidney Disease Epidemiology Collaboration (CKD-EPI) equation refit without adjustment for race. BUN/Creatinine Ratio 23.7 LAB CHEMISTRY METHOD 09/11/2024 7:08 PM [facility] Calcium 9.6 8.5 - 10.5 mg/dL LAB CHEMISTRY METHOD 09/11/2024 7:08 PM [facility] AST (SGOT) 17 10 - 42 unit/L LAB CHEMISTRY METHOD 09/11/2024 7:08 PM [facility] ALT (SGPT) 21 10 - 60 unit/L LAB CHEMISTRY METHOD 09/11/2024 7:08 PM [facility] Alkaline Phosphatase 96 42 - 121 unit/L LAB CHEMISTRY METHOD 09/11/2024 7:08 PM [facility] Total Protein 7.4 6.0 - 8.0 g/dL LAB CHEMISTRY METHOD 09/11/2024 7:08 PM [facility] Albumin 4.0 3.2 - 5.0 g/dL LAB CHEMISTRY METHOD 09/11/2024 7:08 PM [facility] Total Bilirubin 0.5 0.0 - 1.4 mg/dL LAB CHEMISTRY METHOD 09/11/2024 7:08 PM [facility] Blood Venous blood specimen / Unknown Venipuncture / Unknown 09/11/2024 3:27 PM EDT 09/11/2024 3:27 PM EDT us Jad ALLISON LAB BLOOD ORDERABLES Fin al Result [facility] [address] [place] [address], * DXA BONE DENSITY STUDY 1+ SITS AXIAL SKEL (09/15/2023 11:43 AM EDT) Anatomical Region Laterality Modality Bone Densitometr y 06/02/2023 10:5 5 AM EST Narrative 09/15/2023 1:15 PM EDT STUDY: DUAL ENERGY X-RAY ABSORPTIOMETRY / DXA REASON FOR EXAM: Female, 73 years old menopausal/postmenopausal disorder TECHNIQUE: Bone Mineral Density (BMD) measurements of the lumbar spine and left hip were obtained using [employer] W (S/N [id number]). COMPARISON: None FINDINGS: L1-L4 BMD: 1.193 g/cm2 L1-L4 T score: 1.3. This corresponds to Normal bone density. Left femoral neck BMD: 0.705 g/cm2 Left femoral neck T score: -1.3. This corresponds to osteopenia. Left total hip BMD: 0.830 g/cm2 Left total hip T score: -0.9. This corresponds to Normal bone density. FRAX score: 10 year risk of major osteoporotic fracture 19%, 10 year risk of hip fracture 12% IMPRESSION: IMPRESSION: Osteopenia Reference Information: The T-score is the number of standard deviations above or below the standard which is normal for young adults at their peak bone mineral density. The World Health Organization (WHO) interprets the T-scores as follows: At or above -1 SD Normal bone density Between -1 and -2.5 SD Osteopenia At or below -2.5 SD Osteoporosis Procedure Note Jorge A Faulkner MD - 12/25/2023 STUDY: DUAL ENERGY X-RAY ABSORPTIOMETRY / DXA REASON FOR EXAM: Female, 73 years old menopausal/postmenopausaldisorder TECHNIQUE: Bone Mineral Density (BMD) measurements of the lumbar spineand left hip were obtained using [employer] W (S/N [id number]). COMPARISON: None FINDINGS: L1-L4 BMD: 1.193 g/cm2 L1-L4 T score: 1.3. This corresponds to Normal bone density. Left femoral neck BMD: 0.705 g/cm2 Left femoral neck T score: -1.3. This corresponds to osteopenia. Left total hip BMD: 0.830 g/cm2 Left total hip T score: -0.9. This corresponds to Normal bone density. FRAX score: 10 year risk of major osteoporotic fracture 19%, 10 year riskof hip fracture 12% IMPRESSION: IMPRESSION: Osteopenia Reference Information: The T-score is the number of standard deviations above or below thestandard which is normal for young adults at their peak bone mineral density. The World HealthOrganization (WHO) interprets the T-scores as follows: At or above -1 SD Normal bone density Between -1 and -2.5 SD Osteopenia At or below -2.5 SD Osteoporosis Jad ALLISON IMG DXA PROCEDURES Final Result * Falls Risk Assessment (06/02/2023) Falls Risk Assessment abstracted Historical Provider HEALTH MAINTENANCE Final Result * Depression Screening (06/02/2023) Depression Screening abstracted Historical Provider MD HEALTH MAINTENANCE Final Result * CT LUNG SCREENING LOW DOSE (08/13/2022 10:00 AM EDT) Anatomical Region Laterality Modality Computed Tomogra phy 08/13/2022 9:06 AM EDT Narrative 08/13/2022 10:00 AM EDT [facility] Diagnostic Imaging Department [address] [place] [id number] Patient: ASHLEY DOVE /Age/Sex: 1950 - 72 - F Unit#: [id number] Location/Status: SPDICATLS/REG CLI Mnemonic/Ordering Site: [facility] Ordering Physician: AAMIR PADILLA MD CT Lung Screening Low Dose - 08/13/22 - 908 PROCEDURE: CT Lung Screening Low Dose INDICATION: Tobacco abuse Current smoker with 57 pack year total COMPARISON: 08/06/2021 TECHNIQUE: Noncontrast low dose chest CT was performed per lung cancer CT screening protocol. EyeEm VCT dose reduction, utilizing iterative reconstruction. Total exam DLP 168.27 (mGy-cm) FINDINGS: Heart is mildly enlarged. Dense coronary artery calcification is present. There is no evidence for middle mediastinal lymphadenopathy. The pulmonary ismael are symmetric, but mild adenopathy cannot be excluded without IV contrast mater ial. 0.4 cm subpleural noncalcified pulmonary nodule within the posteromedial aspect of the right lower lobe superior segment is not significantly changed in size. No evidence of developing pulmonary nodule, confluent airspace opacity, lung consolidation, or pleural effusion. Mild subsegmental atelectasis at each lung base. Technique was not optimized for evaluation of the included portion of the upper abdomen. Partially imaged/characterized cyst arising from the anterior cortex of left kidney measuring at least 5.4 cm in diameter. Diffuse left breast skin thickening. Metallic clips present within the left axilla. The included portion of the skeleton demonstrates no evidence of aggressive bony lesion. Degenerative endplate ridging at the mid to lower thoracic spine and partially imaged cervical spine fusion hardware. IMPRESSION: No CT evidence of suspicious pulmonary nodule Partially imaged/characterized cystic lesion arising from the anterior cortex of left kidney. Further characterization with ultrasound is recommended. Category S Lung Rads Category: 2S- Benign - Continue annual screening with low-dose CT in 12 months G0297 G9557 G9551 G9637 A Important message has been communicated to the office of AAMIR PADILLA MD via the [employer] System on 08/13/2022 9:59 AM, Message ID [id number]. Dictating Physician: JEOVANY BLANCAS MD Electronically Signed by: JEOVANY BLANCAS MD Dic Date/Time: 08/13/22 0950 Sign date/Time: 08/13/22 1000 Procedure Note Jeovany Blancas MD - 06/09/2023 [facility] Diagnostic Imaging Department [address] [place] [id number] Patient: ASHLEY DOVE /Age/Sex: 1950 - 72 - F Unit#: [id number] Location/Status: [facility] CLI Mnemonic/Ordering Site: [facility] Ordering Physician: AAMIR PADILLA MD CT Lung Screening Low Dose - 08/13/22908 PROCEDURE: CT Lung Screening Low Dose INDICATION: Tobacco abuse Current smoker with 57 pack year total COMPARISON: 08/06/2021 TECHNIQUE: Noncontrast low dose chest CT was performed per lung cancerCT screening protocol. EyeEm VCT dose reduction, utilizing iterative reconstruction. Total exam DLP 168.27 (mGy-cm) FINDINGS: Heart is mildly enlarged. Dense coronary artery calcification ispresent. There is no evidence for middle mediastinal lymphadenopathy. The pulmonaryhila are symmetric, but mild adenopathy cannot be excluded without IV contrastmater ial. 0.4 cm subpleural noncalcified pulmonary nodule within the posteromedialaspect of the right lower lobe superior segment is not significantly changed insize. No evidence of developing pulmonary nodule, confluent airspace opacity,lung consolidation, or pleural effusion. Mild subsegmental atelectasis at each lung base. Technique was not optimized for evaluation of the included portion of theupper abdomen. Partially imaged/characterized cyst arising from the anteriorcortex of left kidney measuring at least 5.4 cm in diameter. Diffuse left breast skin thickening. Metallic clips present within theleft axilla. The included portion of the skeleton demonstrates no evidence ofaggressive bony lesion. Degenerative endplate ridging at the mid to lower thoracicspine and partially imaged cervical spine fusion hardware. IMPRESSION: No CT evidence of suspicious pulmonary nodule Partially imaged/characterized cystic lesion arising from the anteriorcortex of left kidney. Further characterization with ultrasound isrecommended. Category S Lung Rads Category: 2S- Benign - Continue annual screening with low-doseCT in 12 months G0297 G9557 G9551 G9637 A Important message has been communicated to the office of AAMIR PADILLA MD via the [employer] System on 08/13/2022 9:59 AM,Message ID [id number]. Dictating Physician: JEOVANY BLANCAS MD Electronically Signed by: JEOVANY BLANCAS MD Dic Date/Time: 08/13/22 0950 Sign date/Time: 08/13/22 1000 Aamir Padilla MD IMG CT PROCEDURES Final Result * Colonoscopy (10/08/2021) Pathologist [facility] Colonoscopy no interpretation , abstracted Anatomical Region Laterality Modality Other Eliane Tijerina MD HEALTH MAINTENANCE Final Result * Hepatitis C Screening (05/31/2013) Pathologist [facility] Hepatitis C Screening abstracted Historical Breezy GARCIA HEALTH MAINTENANCE Final Result from Last 3 Months or Most Recently Relevant to Health Maintenance Insurance MEDICARE [facility] Advance Directives * Full Code - Default (Latest Code Status on File) Date Activated Date Inactivated Comments 04/23/2024 7:21 AM 04/24/2024 4:58 PM This is o rder is used when code status has not been discussed with the patient, or code status is otherwise unknown/unconfirmed To update the patient's code status, place a code status order. Do not modify or discontinue any currently active code status orders. Care Teams Supervisor Mails Relationship Specialty Start Date End Date Jules Lloyd MD [address] [place] [address] PCP - General Internal Medicine 05/22/17
--- OUTSIDE RECORDS SUMMARY | 2025-04-21 22:49 | XMS_ITS ---
Author Organization [facility] Prior to 10/05/24 Address [address] [place] [address] Care Team Providers Care Inserter Name Role Phone Jules Lloyd MD Primary Care Provider [phone] Active Problems Problem Noted Date Diagnosed Date Recurrent malignant neoplasm of left breast 11/05 Current Oncology Plans No current plan information found. Past Plans ONCOLOGY TREATMENT Plan Name Start Date Discontinue Date Treatment Medications Discontinue Reason Plan Provider Cycles [facility] [place] BCN OP AC, FOLLOWED BY WEEKLY PACLITAXEL + TRASTUZUMAB X12, FOLLOWED BY TRASTUZUMAB X1 YEAR 11/23/19 24 02/09/2024 albuterol (PROVENTIL)cycloPHOSpham laure (CYTOXAN) chemo infusiondexamethasone (DECADRON)diphenhydrAMIN E (BENADRYL)EPINEPHrinefam otidine (PF) (PEPCID)fosaprepitant IV Piggybackhydrocortisone (SOLU-CORTEF) IVpalonosetron (ALOXI)pegfilgrastim-jmd b (FULPHILA)prochlorperazi ne (COMPAZINE)Saline Flush 0.9 %sodium chloride (NS) 0.9 %sodium chloride 0.9% bolus (NS)ZZ EXTEMPORANEOUS TEMPLATE Therapy Complete Vivi Mcintyre MD 4 of 4 cycles started Radiation Treatments * No radiation treatments are documented for this patient in [facility]. Treatments may have been administered in another system. Lifetime Dose Tracking * Chemical Lifetime Dose Automatic Entry Manual Entr y Doxorubicin 62.105 mg/m2 (472 mg) 62.105 mg/m2 (472 m g) 0 mg/m2 (0 mg)
--- OUTSIDE RECORDS SUMMARY | 2025-04-21 22:49 | XMS_ITS ---
Author Name [facility] Organization Unknown Care Team Organization Name Specialty Phone Email Start Date End Da te [facility] 12/25/2024 [facility] Termed, PROVIDER Primary Care 07/13/202212/06 [facility] Lloyd Primary Care 03/15/2022 12/25/2023
--- OUTSIDE RECORDS SUMMARY | 2025-04-21 22:49 | XMS_ITS | Encounter Summary ---
Author Organization [facility] [place] [address] Care Team Providers Care Talent Acquisition Consultant Name Role Phone Jules Lloyd MD Primary Care Provider Encounter Details Date Type Department Care Team (Late st Contact Info) Description 02/28/2025 Results [facility] [address] [phone] Anastasiya Saenz MA Social History Tobacco Use Types Packs/Day Years [...] for your loved ones. For example, child care provider or elderly care for an older adult? [...] Office Visit [facility] Hematology Oncology [address] [place] [phone] Vivi Mcintyre MD [address] [place] [address] 05/12/2025 9:30 AM EST Appointment [facility] Center [address] [phone] 07/23/2025 10:00 AM EDT Office Visit [facility] [address] [place] [phone] Jigar Smart MD [address] [place] [phone] 08/06/2025 11:15 AM EDT Office Visit Adult Medicine [facility] [address] [place] [phone] Jules Lloyd MD [address] [place] [address] documented as of this encounter Visit Diagnoses Not on filedocumented in this encounter Additional Health Concerns Assessment Noted Time PHQ-9 Depression Total Score: 0 01/30/20 25 4:58 PM EDT documented as of this encounter Care Teams Talent Acquisition Consultant Relationship Specialty Start Date End Date Jules Lloyd MD [address] [place] [address] PCP - General Internal Medicine 05/22/17 documented as of this encounter
--- OUTSIDE RECORDS SUMMARY | 2025-04-21 22:49 | XMS_ITS | Clinical Summary ---
Author Organization [facility] Address [address] [place] [phone] Phone Care Team Providers Care Maintenance Services Dispatcher Name Role Phone Jules Lloyd MD Primary Care Provider [phone] Anastasiya Christianson MD Unavailable Esther Garrett MD Unavailable Allergies Active Allergy Reactions Criticality Noted Date Comments Cephalexin 09/25/2017 Sulfa (Sulfonamide Antibiotics) 09/06 Medications trazodone HCl (TRAZODONE ORAL) Take by mouth. Active pravastatin sodium (PRAVASTATIN ORAL) Take by mouth. Active Active Problems Problem Noted Date Diagnosed Date Malignant neoplasm of left b reast in female, estrogen receptor positive 06/12/2024 Social History Tobacco Use Types Packs/Day Years Used Date Smoking Tobacco: Never Assessed Child or Family Care Answer Date Record ed Do you have problems with on e of the following making it difficult for you to work, study, or receive health care? No 05/14/2024 Education Answer Date Recorded Are you interested in more education? Not on freddy e 09/02/2022 Are you concerned about learning? Not on file 09/02/2022 No 09/02/2022 No 09/02/2022 Food Answer Date Recorded Within the past 6 months we worried whether our food would run out before we got money to buy more. Never True 05/14/2024 Within the past 6 months the food we bought just didn't last and we didn't have enough money to get more. Never True Residential Stability Answer Date Recor ded What is your housing situation today? I have holly otero 05/14/2024 How many times have you move d in the past 12 months? Zero (I did not move) 05/14/2024 Paying for Meds Answer Date Recorded Do you have trouble paying for medicines? No 05/14/2024 Paying Utility Bills Answer Date Record ed Do you have trouble paying your heating or elect ricity bill? No 05/14/2024 Transportation Answer Date Recorded Has the lack of transportati on kept you from medical appointments or from getting medications? No 05/14/2024 Digital Access Answer Date Recorded No 10/01/2022 No 10/01/2022 Reliable internet access at home? Not on file 10/01/2022 Device with a working camera? Not on file Comments Unknown Sex and Gender Information Value Date Recorded Sex Assigned at Female 05/14/2024 12:05 PM EST Legal Sex Female 3:38 PM EDT Gender Identity Female 05/14/2024 12:05 PM EST Sexual Orientation Straight 05/14/2024 12 :05 PM EST Last Filed Vital Signs Vital Sign Reading Time Taken Comments Blood Pressure 137/63 06/12/2024 12:22 PM EST Pulse 71 06/12/2024 12:22 PM EST Temperature 36.8 C (98.2 F) 06/12/2024 12:22 PM EST Respiratory Rate 16 06/12/2024 12:22 PM EST Oxygen Saturation 99% 06/12/2024 12:22 PM EST Inhaled Oxygen Concentration - - Weight 73.3 kg (161 lb 9.6 oz) 06/12/2024 12:22 PM EST Height 159.2 cm (5' 2.68 ) 06/12/2024 12:[address] Body Mass Index 28.92 06/12/2024 12:22 PM EST Plan of Treatment Health Maintenance Due Date Last Done Comments DEPRESSION SCREENING 1960 SMOKING Hx and SMOKELESS TOBACCO SCREENING 1961 HEPATITIS C SCREENING 1966 PNEUMOCOCCAL VACCINES (50+ years) (1 of 2 - PCV) 1967 ZOSTER VACCINES (1 of 2) 1967 OSTEOPOROSIS SCREENING INITI AL (ONE-TIME) 2013 RSV VACCINE (1 - 1-dose 75+ series) 2023 INFLUENZA VACCINE (#1) 2024 0, 02/15/2008, 02/07/2007 COVID-19 VACCINE (2024-2 6 season) 2025 03/19/2021, 07/23/2020, 07/02/2020 Adult Td,Tdap Booster 06/27/2026 06/27/2016 , 05/08/2002 LIPID PANEL 11/22/2028 11/23/2023 HEPATITIS A VACCINES Aged Out No long er eligible based on patient's age to complete this topic HIB VACCINES Aged Out No longer eligi ble based on patient's age to complete this topic MENINGOCOCCAL VACCINES (ACWY) Aged Out No longer eligible based on patient's age to complete this topic MENINGOCOCCAL VACCINES (B) Aged Out N o longer eligible based on patient's age to complete this topic Medical Devices Not on file Insurance MEDICARE PART A & B [employer] SUPPLEMENT MEDICARE PART A & B [employer] MEDEX SUPPLEMENT MEDICARE PART A & B [employer] SUPPLEMENT MEDICARE PART A & B [facility] MED[facility] SUPPLE[facility] MEDICARE PART A & B [employer] SUPPLEMENT MEDICARE PART A & B [employer]EX SUPPLEMENT MEDICARE PART A & B [employer] MEDEX SUPPLEMENT MEDICARE PART A & B [employer] MEDEX SUPPLEMENT MEDICARE PART A & B [employer] MEDEX SUPPLEMENT Care Teams Maintenance Services Dispatcher Relationship Specialty Start Date End Date Jules Lloyd MD [address] [place] [id number] PCP - General Internal Medicine 09/12/17 Anastasiya Christianson MD [address] [place] [id number] [email or web address] Referring Physician Radiation Oncology 05/14/24 Esther Garrett MD [address] [place] [address], [email or web address]- [address] [id number] [email or web address] Radiation Oncology 06/03/24 Additional Source Comments The information contained in this document represents components of the legal health record. It is not the complete legal health record.[facility]
[2025-04-21 23:47] VITALS: BP 132/56; PULSE 54; RESP 16; TEMP 36.8; O2SAT 99
[2025-04-22 00:46] VITALS: BP 132/56; PULSE 54; RESP 16; TEMP 36.8; O2SAT 99
== END 2025-04-22 00:48 | disposition home or self-care (01) ==
PROVIDERS: Physician Assistant Medical; Emergency Provider Emergency Medicine; PCP Internal Medicine
DX: R11.2 Nausea with vomiting, unspecified (principal); R19.7 Diarrhea, unspecified; R10.12 Left upper quadrant pain; E27.9 Disorder of adrenal gland, unspecified; Z03.818 Encounter for observation for suspected exposure to other biological agents ruled out; Z85.3 Personal history of malignant neoplasm of breast
CPT/HCPCS: 71046; 74177; 80053; 81001; 83690; 83735; 84484; 85025; 85610; 87637; 93005; 96361; 96374; 99284; 99285; J2405; Q9967

== ENCOUNTER → 2025-04-21 15:02 | Outpatient (BNV) | payer MEDICARE, SELFPAY | PROVIDERS: Emergency Provider Emergency Medicine; PCP Internal Medicine; Visit Provider Internal Medicine Cardiovascular Disease | DX: R10.9 Unspecified abdominal pain (principal) | CPT/HCPCS: 93010 ==

== ENCOUNTER → 2025-04-21 17:12 | Outpatient (BNV) | payer MEDICARE, SELFPAY | PROVIDERS: PCP Internal Medicine; Visit Provider Radiology Diagnostic Radiology | DX: K80.20 Calculus of gallbladder without cholecystitis without obstruction (principal); K44.9 Diaphragmatic hernia without obstruction or gangrene; R16.0 Hepatomegaly, not elsewhere classified; N28.1 Cyst of kidney, acquired; Z45.2 Encounter for adjustment and management of vascular access device; I70.0 Atherosclerosis of aorta | CPT/HCPCS: 71046; 74177 ==